=== PATIENT | female | born 1935 | race Caucasian/White ===

== ENCOUNTER 2017-12-29 18:07 | Inpatient (IN) ==
--- NOTE | 2017-12-29 18:18 | Emergency Department Report ---
General Adult HPI - General Chief complaint: Fever Stated complaint: POSS FEVER Time Seen by Provider: 12/29/17 18:11 Source: patient, EMS, other ([facility]) Mode of arrival: EMS Limitations: other (Dementia / MR) - History of Present Illness HPI narrative: 82 F presents to the emergency department with a chief complaint of a potential fever. She was sent because rest care had noted that she has been incontinent of urine and that her urine has been smelling badly which is new for the patient. Patient has been feeling poorly for most of today. Patient was noted to have a fever of 101.5F at her care facility. The care team also reports that her heart rate was possibly as high as 140 bpm and that her blood pressure was in the 70s and 80s systolically. She denies any pain or discomfort. She was at her care facility when her symptoms began. History is limited secondary to the patient's mental retardation and dementia. - Related Data Home Medications Medication Instructions Recorded Confirmed Acetaminophen 650 mg PO TID #0 tab 10/21/14 12/29/17 Esomeprazole Magnesium [Nexium] 40 mg PO DAILY #0 cap 10/21/14 12/29/17 Fluticasone Nasal [place] [Flonase] 2 spray EA NOSTRIL DAILY #0 ml 10/21/14 Albuterol/Ipratropium [Duoneb] 1 unit AEROSOL QID 06/06/17 12/29/17 Gabapentin 300 mg PO HS 06/06/17 12/29/17 Hypromellose [Systane Gel] 1 drop OP TID 06/06/17 12/29/17 CloNIDine [Catapres] 0.1 mg PO HS 07/11/17 12/29/17 Lisinopril [Prinivil] 10 mg PO DAILY 07/11/17 12/29/17 Loratadine [Claritin] 10 mg PO DAILY 07/11/17 12/29/17 Sertraline [Zoloft] 150 mg PO QAM 07/11/17 12/29/17 Vitamin E (Dl,Tocopheryl Acet) 100 unit PO DAILY 07/11/17 12/29/17 [Vitamin E] OLANZapine [Zyprexa Zydis] 20 mg PO HS 12/23/17 12/29/17 ClonazePAM [Klonopin] 1 mg PO TID 12/29/17 12/29/17 Senna + Docusate [Senna Plus 1 tab PO DAILY 12/29/17 12/29/17 Tablet] Allergies Allergy/AdvReac Type Severity Reaction Status Date / Time No Known Allergies Allergy Verified 12/29/17 18:19 Review of Systems Limitations: ROS unobtainable due to patient's medical condition (MR with dementia) PFS Patient Stated Medical History Dementia Yes Hypertension Yes Chronic Obstructive Pulmonary Yes Disease (COPD) Other Yes: URETHRAL STENOSIS Osteoarthritis Yes Bipolar Disorder Yes Other Behavioral Health Yes: MILD MR interstitial cystitis Surgical History: Breast biopsies, cystoscopy with urethral dilation, oral surgery with extraction of teeth, eye surgery Family History: Reviewed and non-contributory. - Social History Smoking status: Never smoker Substance use type: does not use Alcohol intake frequency: does not drink Physical Exam - Limitations Limitations: other (dementia/mental retardation) - General General appearance: alert, in no apparent distress - Normal Exams: Head:: Normocephalic without trauma Eyes:: Pupils are PERRLA w/ EOMI, No scleral icterus, irritation, or foreign bodies noted ENMT:: No facial trauma, nasal exudates, pharyngeal erythema, or exudates are noted Dental: No fractured, loose, or missing teeth noted Neck:: Full range of motion, without adenopathy, JVD, bruits or thyromegaly Chest/Respirations:: Clear all cordoba, with good airflow, and symmetry bilaterally Cardiovascular:: Regular rate and rhythm, without murmur or gallop, Pulses 2+ all extremities, capillary refill, <2 seconds all extremities Abdomen:: Bowel sounds positive, soft, non-tender, non-distended, no hepatosplenomegaly, masses or bruits noted Lymphatic:: No lymphadenopathy, or lymphedema noted Musculoskeletal:: No tenderness, or deformity noted, good range of motion, all extremities Integumentary:: No rashes, hives, or bruising noted, hair and nails, without abnormality Neurological:: Patient is alert (alert and oriented 1. At neurologic baseline per [facility] staff. No focal deficit. ) Medical Decision Making - MDM Narrative Medical decision making narrative: Labs/imaging were discussed in detail with the patient and caregiver and questions are answered. Patient was given 500 mL normal saline intravenously times one in the emergency department. Patient was discussed with Dr. Sr from the hospitalist service who agrees to accept the patient to his service for further evaluation and treatment. Patient does not have any respiratory or chest symptoms. Patient does have symptoms consistent with a urinary tract infection and her urinalysis is positive for UTI. At 1942 Rocephin 1 g IV was given when sepsis was considered. Patient has a lactic acid less than 4 and was never hypotensive in the emergency department. She declines offered analgesic pain medication in the emergency department. She is admitted to the service of the hospitalist Dr. Ornelas in improved condition. No further orders from accepting physician who is in agreement with the current plan of management. 1942 Rocephin 1 g IV was given when sepsis was considered. Patient's lactic acid is < 4 and she was never hypotensive in the ED. - Differential Diagnosis UTI, Viral Syndrome, PNA, Metabolic disorder - Lab Data Result diagrams: 12/29/17 18:35 12/29/17 18:35 - Radiology Data CXR - No obvious acute processes. Similar to comparison exam. Cannot really exclude atelectasis versus infiltrate in the base. - EKG Data EKG #1 EKG results narrative: Sinus Tachycardia. 114 bpm. No STEMI. Disposition Clinical Impression: UTI (urinary tract infection) Qualifiers: Urinary tract infection type: acute cystitis Hematuria presence: with hematuria Qualified Code(s): N30.01 - Acute cystitis with hematuria Disposition: To [facility] Acute Care Condition: Improved Time of Disposition: 19:35 - Seen By: physician
[2017-12-29] MEDS: SALINE FLUSH 10ml SYRINGE IVF PRN (18:34)
[2017-12-29] MEDS ORDERED: CEFTRIAXONE 1 G in NS 100 ML IV ONE (19:43)
--- NOTE | 2017-12-29 20:49 | History & Physical Report ---
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 The pt developed fevers today at the home of 102, with elevated BP's. She has been eating and drinking normally, her baseline is nonverbal and usually requires assistance with ambulation. She has not been yelling, voilent, no emesis, diarrhea, no rashes Review of Systems - Constitutional Constitutional: Present: chills, fatigue, fever(s). Absent: anorexia - Respiratory Respiratory: Absent: cough, wheezing - Gastrointestinal Gastrointestinal: Absent: constipation, vomiting - Genitourinary Genitourinary: Present: urinary frequency, urinary incontinence - Musculoskeletal Musculoskeletal: Absent: deformity - Neurological Neurological: Present: confusion Past Medical History Surgical History: Breast biopsies, cystoscopy with urethral dilation, oral surgery with extraction of teeth, eye surgery Family History: As Above - Social History Smoking status: Never smoker Substance use type: does not use Alcohol intake frequency: does not drink Housing: assisted living facility Medications Home Medications Medication Instructions Recorded Confirmed Type Acetaminophen 650 mg PO TID #0 tab 10/21/14 12/29/17 History Esomeprazole Magnesium [Nexium] 40 mg PO DAILY #0 cap 10/21/14 12/29/17 History Fluticasone Nasal [place] [Flonase] 2 spray EA NOSTRIL DAILY #0 ml 10/21/14 History Albuterol/Ipratropium [Duoneb] 1 unit AEROSOL QID 06/06/17 12/29/17 History Gabapentin 300 mg PO HS 06/06/17 12/29/17 History Hypromellose [Systane Gel] 1 drop OP TID 06/06/17 12/29/17 History CloNIDine [Catapres] 0.1 mg PO HS 07/11/17 12/29/17 History Lisinopril [Prinivil] 10 mg PO DAILY 07/11/17 12/29/17 History Loratadine [Claritin] 10 mg PO DAILY 07/11/17 12/29/17 History Sertraline [Zoloft] 150 mg PO QAM 07/11/17 12/29/17 History Vitamin E (Dl,Tocopheryl Acet) 100 unit PO DAILY 07/11/17 12/29/17 History [Vitamin E] OLANZapine [Zyprexa Zydis] 20 mg PO HS 12/23/17 12/29/17 History ClonazePAM [Klonopin] 1 mg PO TID 12/29/17 12/29/17 History Senna + Docusate [Senna Plus 1 tab PO DAILY 12/29/17 12/29/17 History Tablet] Allergies Allergy/AdvReac Type Severity Reaction Status Date / Time No Known Allergies Allergy Verified 12/29/17 18:19 Exam Vital Signs: Temperature 99.3 F 12/29/17 18:07 Pulse Rate 107 H 12/29/17 20:00 Respiratory Rate 20 12/29/17 18:07 Blood Pressure 127/68 12/29/17 19:53 Pulse Oximetry 93 12/29/17 20:00 - Constitutional Present: no acute distress - Routine Neck Exam Present: supple - Routine Respiratory Exam Present: CTA bilaterally. Absent: respiratory distress - Routine Cardiovascular Exam Present: RRR, murmur - Routine Abdominal Exam Present: soft, normoactive bowel sounds. Absent: rebound, guarding - Routine Extremities Exam Present: edema Results - Labs CBC & Chem 7: 12/29/17 18:35 12/29/17 18:35 Assessment and Plan (1) Sepsis Current visit: Yes Status: Acute (2) UTI (urinary tract infection) Current visit: Yes Status: Acute Assessment and Plan: will place pt on IVF, start on rocephin, prn med, restart home meds. - Physician Narrative Narrative: Date: 12/29/17 Time: 2045 Hospital Course Summary Disclaimer: The visit summary below is not to be considered part of the above Progress Note.
[2017-12-29] MEDS ORDERED: HYDROCODONE/APAP 5mg/325mg TABLET PO PRN (20:54)
[2017-12-29] MEDS ORDERED: CEFTRIAXONE 1 G INJECTION IM SCH (20:54)
[2017-12-29] MEDS ORDERED: ONDANSETRON 4 MG/2 ML INJECTION IVP PRN (20:54)
[2017-12-29] MEDS ORDERED: SENNOSIDES 8.6 MG TABLET PO PRN (20:54)
[2017-12-29] MEDS ORDERED: SENNA + DOCUSATE TABLET PO PRN (20:54)
[2017-12-29] MEDS: NS 1,000 ML IV SCH (21:29)
[2017-12-29] MEDS: GABAPENTIN 300 MG CAPSULE PO SCH (21:59)
[2017-12-29] MEDS: ACETAMINOPHEN 325 MG TABLET PO PRN (21:59)
[2017-12-29] MEDS: ClonazePAM 1 MG TABLET PO SCH (21:59)
[2017-12-29] MEDS ORDERED: FALL RISK - PHARMACY CONSULT MC ONE (23:26)
[2017-12-29 23:41] VITALS: BMI 21.2
[2017-12-30] MEDS: ACETAMINOPHEN 325 MG TABLET PO PRN ×3 (04:47→20:31)
[2017-12-30] MEDS: OLANZapine 10 MG TABLET PO SCH ×2 (06:52→20:31)
[2017-12-30] MEDS: OMEPRAZOLE 20 MG CAPSULE PO SCH (06:56)
[2017-12-30] MEDS: NS 1,000 ML IV SCH ×2 (07:11→18:01)
[2017-12-30] MEDS: ALBUTEROL/IPRATROPIUM 2.5mg-0.5mg/3ml NEB AEROSOL SCH ×5 (07:42→19:25)
--- NOTE | 2017-12-30 07:45 | XRay Report ---
Indication: poss. fever. PROCEDURE: XR chest 1V: Encounter: Initial Comparison: July 11, 2017 Findings: Emphysema without focal pneumonia. Possible trace right effusion. No pneumothorax. Heart size and mediastinal contours are stable. Pulmonary vascularity appears normal. Impression: No focal pneumonia. .
--- NOTE | 2017-12-30 09:00 | History & Physical Report ---
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 The pt developed fevers today at the home of 102, with elevated BP's. She has been eating and drinking normally, her baseline is nonverbal and usually requires assistance with ambulation. She has not been yelling, voilent, no emesis, diarrhea, no rashes. 12/30/17 gale Snider is an 82-year-old female patient of Dr. Hood and a long time resident at [facility]. She has a history of MR developmental delay and is non- verbal so her history is primarily obtained from prior medical records, ED records and nursing notes. She was brought to [facility] ED yesterday evening, 12/29/17 , for evaluation of fevers. Records indicated that the nursing staff at [facility] noted foul smelling urine and stated that she recently became incontinent of urine which is unusual for her. She was also noted to be febrile at the correction at 101.5 and appeared not to be feeling well. EMS was contacted and she was found to be tachycardic with a reported systolic blood pressure between 70-80s. Upon arrival to the ED, labs were obtained and revealed leukocytosis (WBC 12.1), mild anemia (hgb 11.9), slight elevation in her creatine at 1.3 and hyperglycemia (Glu 150). UA revealed 50-200 WBC with 3 + bacteria and + nitrates. CXR was unremarkable. She was given 1 L NS with some improvement in her vitals. Blood cultures were obtained and she was started on empiric treatment with Rocephin IV. Due to her sepsis secondary to UTI as indicated by fever, leukocytosis, elevated lactate (2.1) and tachycardia , the night tele-hospitalist was consulted and she was accepted into inpatient status for further evaluation, close monitoring, IV antibiotics and IV hydration. Her length of stay is expected to exceed more than 2 over nights. On exam, she is seen while resting in bed with nursing at the bedside attempting to replace her IV as the initial IV had infiltrated. She is non- verbal and does not appear to be in any acute distress. Repeat labs today revealed resolution of her leukocytosis (WBC 9.9) and improvement in creatine. Fasting hyperglycemia noted (Glu 193) with no known history of diabetes. Serial lactates trending down. She was noted to have a fever during the night of 103.7 which improved with Tylenol. Review of Systems ROS unobtainable: due to mental status All systems PM: 10-point ROS was reviewed, no additional remarkable complaints except - Constitutional Constitutional: Present: fatigue, fever(s), weakness - EENMT Eyes: Absent: photophobia Nose: Absent: nosebleeds Mouth/Throat: Absent: changes in swallowing - Cardiovascular Cardiovascular: Absent: syncope, edema Rhythm: Present: regular rhythm Vascular: Absent: pallor of an extermity, pedal edema, unilateral swelling - Respiratory Respiratory: Absent: cough, dyspnea, wheezing - Gastrointestinal Gastrointestinal: Present: constipation. Absent: vomiting - Genitourinary Genitourinary: Present: urinary frequency, urinary incontinence Menstruation: post menopausal - Musculoskeletal Musculoskeletal: Present: muscle weakness (generalized). Absent: deformity - Integumentary/Breasts Integumentary: Absent: rash - Neurological Neurological: Present: weakness. Absent: convulsions, focal weakness - Psychiatric Psychiatric: Absent: behavioral changes - Hematologic/Lymphatic Hematologic/Lymphatic: Absent: easy bruising - Allergic/Immunologic Allergic/Immunologic: Present: seasonal rhinorrhea Past Medical History Medical History Updates: Hypertension. Mental retardation with developmental delays. Bipolar disorder. GERD. Seasonal allergies. Constipation. Interstitial cystitis. History of ureteral stenosis. Chronic pain. Personality disorder. Oropharyngeal dysphagia. COPD. Osteoarthritis. Surgical History: Breast biopsies. Cystoscopy with urethral dilation. Oral surgery with extraction of teeth. Eye surgery. Family History: Unable to obtain as patient is non-verbal. Family History: As Above - Social History Smoking status: Never smoker Substance use type: does not use Alcohol intake frequency: does not drink Housing: [facility] ([facility]) Household members: caregiver Current occupational status: disabled Does patient use chewing tobacco?: No Current residence: [facility] Social history: PCP - Dr. Hood. Medications Home Medications Medication Instructions Recorded Confirmed Type Acetaminophen 650 mg PO TID #0 tab 10/21/14 12/29/17 History Esomeprazole Magnesium [Nexium] 40 mg PO DAILY #0 cap 10/21/14 12/29/17 History Fluticasone Nasal [place] [Flonase] 2 spray EA NOSTRIL DAILY #0 ml 10/21/14 History Albuterol/Ipratropium [Duoneb] 1 unit AEROSOL QID 06/06/17 12/29/17 History Gabapentin 300 mg PO HS 06/06/17 12/29/17 History Hypromellose [Systane Gel] 1 drop OP TID 06/06/17 12/29/17 History CloNIDine [Catapres] 0.1 mg PO HS 07/11/17 12/29/17 History Lisinopril [Prinivil] 10 mg PO DAILY 07/11/17 12/29/17 History Loratadine [Claritin] 10 mg PO DAILY 07/11/17 12/29/17 History Sertraline [Zoloft] 150 mg PO QAM 07/11/17 12/29/17 History Vitamin E (Dl,Tocopheryl Acet) 100 unit PO DAILY 07/11/17 12/29/17 History [Vitamin E] OLANZapine [Zyprexa Zydis] 20 mg PO HS 12/23/17 12/29/17 History ClonazePAM [Klonopin] 1 mg PO TID 12/29/17 12/29/17 History Senna + Docusate [Senna Plus 1 tab PO DAILY 12/29/17 12/29/17 History Tablet] Allergies Allergy/AdvReac Type Severity Reaction Status Date / Time No Known Allergies Allergy Verified 12/29/17 18:19 Exam Vital Signs: Temperature 99.4 F 12/30/17 07:27 Pulse Rate 84 12/30/17 07:27 Respiratory Rate 16 12/30/17 07:27 Blood Pressure 100/46 12/30/17 07:27 Pulse Oximetry 93 12/30/17 07:27 Height/Weight/BMI: Height 5 ft 6 in Weight 131 lb 2.801 oz Body Mass Index 21.2 Comments: Patient is resting in bed, alert, with nursing present attempting to plan an IV. - Constitutional Present: no acute distress, well nourished, well developed, thin, cooperative - Routine HEENT Exam Head: Present: normocephalic, atraumatic Eye: Absent: conjunctival icterus ENT: Present: mucous membranes moist - Routine Neck Exam Present: supple, trachea midline - Routine Chest/Breast/Axilla Exam Chest wall: Absent: pacemaker - Routine Respiratory Exam Present: CTA bilaterally. Absent: respiratory distress, wheezes Comments: Breathing easily on room air without cough or distress. - Routine Cardiovascular Exam Present: RRR, S1, S2, murmur - Routine Abdominal Exam Present: soft, normoactive bowel sounds, non distended - Routine Extremities Exam Present: no edema, pulses intact Comments: Ecchymosis noted to right great toe. - Routine Skin Exam Present: dry, warm Comments: currently afebrile after treatment. - Routine Neurological Exam Present: alert, hearing grossly intact. Absent: facial asymmetry Non-verbal. - Routine Psychiatric Exam Present: cooperative Results - Labs CBC & Chem 7: 12/30/17 04:00 12/30/17 04:00 Assessment and Plan (1) UTI (urinary tract infection) Current visit: Yes Status: Acute (2) Sepsis Current visit: Yes Status: Acute Assessment and Plan: Assessment/Plan per tele-hospitalist 12/29/17 - will place pt on IVF, start on rocephin, prn med, restart home meds. Assessment: Severe sepsis secondary to UTI as indicated by fever, tachycardia, leukocytosis , lactic acidosis (2.1), hyperglycemia in non-diabetic. UTI, present on admission. Anemia, mild, present on admission. Hyperglycemia in non-diabetic, present on admission. Hypertension. 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 Bipolar disorder. GERD. Seasonal allergies. Constipation. Interstitial cystitis. History of ureteral stenosis. Chronic pain. Personality disorder Oropharyngeal dysphagia. COPD. Osteoarthritis. Plan - 12/30/17: Patient was admitted to inpatient status under the care of Dr. Ornelas and the hospitalist service. She received Rocephin 1g IV in ED prior to admission. Will continue Rocephin 1g IV Q24 hours for empiric treatment of UTI. Blood cultures and urine culture pending. Will adjust antibiotic treatment as indicated based on cultures and sensitivities. No prior urine cultures available. Serial lactates were trended and improving - 2.1-->1.8. Initial leukocytosis present on admission resolved. Hyperglycemia without known diabetes. Monitor BGMs closely. Anticipate secondary to severe sepsis. Consider A1c if no improvement with resolution of sepsis. Blood pressure stable without noted hypotension since arrival in ED. Continue to monitor closely. Continue home clonidine and lisinopril. Continue home medications. Monitor closely for signs of behaviors changes given history of bipolar and MR. Oliver treatments QID for chronic COPD. CXR on admission was unremarkable. Tylenol as needed for fevers. Recheck labs in AM to monitor blood counts, electrolytes and renal function. Mechanical soft diet with pureed meats and nectar thickened liquids per records. Nexium for GERD and GI protection. SCDs for DVT prophylaxis. Upon discharge, patient's care will be returned to her PCP, Dr. Hood. Patient is reportedly a FULL CODE. 12/30/2017-9:20 PM-I examined the patient independently. I reviewed this chart, the patient history, and the HEADER UP's/PA's documented findings as above. We discussed and formulated the assessment and plan as above with the additions below.-Dr. Ornelas Patient was seen earlier this evening in her room. She was having shaking chills. I did ask the nurse to check her vitals and her temperature was 100.9, heart rate 118, blood pressure 153/95, O2 sat 95% on room air, respirations 28. The patient admitted to feeling cold. She stated she needed to urinate. On exam this is an elderly female in mild distress with chills. Neck is kyphotic. Chest is clear to auscultation. Cardiovascular reveals a tachycardic rate with irregular rhythm. Abdomen is soft and nontender. Extremities are free of edema. White count has improved to 9.9 down from 12.1. Neutrophils 76%. Urine culture reveals Escherichia coli with sensitivities pending. Blood cultures 2 are negative after 24 hours Impression and plan Sepsis secondary to UTI. Continue Rocephin. If still febrile tomorrow, may need to add additional antibiotic or increased dose of Rocephin. Follow-up on urine culture sensitivities and blood cultures. Repeat CBC and basic metabolic profile tomorrow. Continue IV fluids. Tylenol for fever and chills. DVT Prophylaxis: SCD's GI Prophylaxis: other (Nexium) Resuscitation Status: Full Code - Time spent with patient Time with patient PN: 50 minutes - Physician Narrative Physician: Savi Ornelas MD Narrative: Date: 12/30/17 Time: 0846 Sepsis Assessment - Evaluation SIRS Criteria: temperature > 100.9, pulse > 90 beats/minute, WBC > 12,000 Severe Sepsis: lactate > 2.0 mg/dL Hospital Course Summary Disclaimer: The visit summary below is not to be considered part of the above Progress Note. Hospital Course: Plan - 12/30/17: Patient was admitted to inpatient status under the care of Dr. Ornelas and the hospitalist service. She received Rocephin 1g IV in ED prior to admission. Will continue Rocephin 1g IV Q24 hours for empiric treatment of UTI. Blood cultures and urine culture pending. Will adjust antibiotic treatment as indicated based on cultures and sensitivities. No prior urine cultures available. Serial lactates were trended and improving - 2.1-->1.8. Initial leukocytosis present on admission resolved. Hyperglycemia without known diabetes. Monitor BGMs closely. Anticipate secondary to severe sepsis. Consider A1c if no improvement with resolution of sepsis. Blood pressure stable without noted hypotension since arrival in ED. Continue to monitor closely. Continue home clonidine and lisinopril. Continue home medications. Monitor closely for signs of behaviors changes given history of bipolar and MR. [place] treatments QID for chronic COPD. CXR on admission was unremarkable. Tylenol as needed for fevers. Mechanical soft diet with pureed meats and nectar thickened liquids per records. Recheck labs in AM to monitor blood counts, electrolytes and renal function. Nexium for GERD and GI protection. SCDs for DVT prophylaxis. Upon discharge, patient's care will be returned to her PCP, Dr. Hood. Patient is reportedly a FULL CODE.
[2017-12-30] MEDS: ClonazePAM 1 MG TABLET PO SCH ×3 (09:23→20:31)
[2017-12-30] MEDS: LISINOPRIL 10 MG TABLET PO SCH (09:23)
[2017-12-30] MEDS: FLUTICASONE NASAL SPRAY 50mcg EA NOSTRIL SCH (09:23)
[2017-12-30] MEDS: SERTRALINE 100 MG TABLET PO SCH (09:24)
[2017-12-30] MEDS: LORATADINE 10 MG TABLET PO SCH (09:24)
[2017-12-30] MEDS: SENNA + DOCUSATE TABLET PO SCH (09:25)
[2017-12-30] MEDS: GABAPENTIN 300 MG CAPSULE PO SCH (20:31)
[2017-12-30] MEDS: CEFTRIAXONE 1 G in NS 100 ML IV SCH (20:39)
[2017-12-31] MEDS: NS 1,000 ML IV SCH (04:34)
[2017-12-31] MEDS: OMEPRAZOLE 20 MG CAPSULE PO SCH (07:40)
[2017-12-31] MEDS: ALBUTEROL/IPRATROPIUM 2.5mg-0.5mg/3ml NEB AEROSOL SCH ×4 (07:49→19:18)
[2017-12-31] MEDS: ClonazePAM 1 MG TABLET PO SCH ×3 (08:47→20:55)
[2017-12-31] MEDS: FLUTICASONE NASAL SPRAY 50mcg EA NOSTRIL SCH (08:47)
[2017-12-31] MEDS: LORATADINE 10 MG TABLET PO SCH (08:48)
[2017-12-31] MEDS: LISINOPRIL 10 MG TABLET PO SCH (08:48)
[2017-12-31] MEDS: SENNA + DOCUSATE TABLET PO SCH (08:48)
[2017-12-31] MEDS: SERTRALINE 100 MG TABLET PO SCH (08:48)
--- NOTE | 2017-12-31 10:33 | Progress Note ---
- Date 12/31/17 Subjective: Marilia is seen this morning while sitting up in bed, working with speech therapy. She is much more alert today and is able to answer questions appropriately. She denies any current pain. No chest pain or shortness of breath. Speech reports that she appears to be at her baseline with regard to her dysphagia and has been eating well this morning. She has remained afebrile since yesterday and resolution of her leukocytosis. Nursing expressed concerns yesterday with regard to her decreased level of consciousness, though she appears improved today. Slight hypernatremia with hypokalemia today. Lactate trending down - 2.1-->1.8-->0.7 today. Blood pressure elevated. Weight trending up and pulse oximetry slowly trending down in low 90s. Objective Vital signs: Temperature 98.3 F 12/31/17 08:01 Pulse Rate 93 12/31/17 08:01 Respiratory Rate 24 12/31/17 08:01 Blood Pressure 154/69 H 12/31/17 08:01 Pulse Oximetry 90 12/31/17 08:01 Height/Weight/BMI: Height 5 ft 6 in Weight 138 lb 0.15 oz Body Mass Index 21.2 Comments: Sitting up in bed with speech therapy at bedside. Occasional dry cough. - Constitutional Present: no acute distress, well nourished, well developed, thin, cooperative Comments: Much more alert today and able to answer questions appropriately. - Routine HEENT Exam Head: Present: normocephalic, atraumatic Eye: Present: PERRL. Absent: conjunctival icterus ENT: Present: mucous membranes moist, oropharynx clear Comments: Patient at baseline with regard to dysphagia. Matting of eyes bilaterally without discharge or erythema. - Routine Respiratory Exam Present: decreased breath sounds, crackles (bilateral bases.) Comments: Occasional dry cough. - Routine Abdominal Exam Present: soft, normoactive bowel sounds, non distended, non tender - Routine Extremities Exam Present: non tender, pulses intact - Routine Back/Spine/Pelvis Exam Back/Spine: Absent: vertebral tenderness Comments: Limited exam due to generalized weakness. - Routine Musculoskeletal Exam Musculoskeletal: Present: no clubbing or cyanosis - Routine Skin Exam Present: intact, dry, warm Comments: Afebrile. - Routine Neurological Exam Present: alert, hearing grossly intact, normal speech. Absent: facial asymmetry - Routine Lymphatic Exam Lymphatic: Absent: lymphedema - Routine Psychiatric Exam Present: cooperative Results - Labs CBC & Chem 7: 12/31/17 04:47 12/31/17 04:47 - ABG Interpretation ABG results: 12/31/17 01:02 VBG pH 7.428 H VBG pCO2 31.2 L VBG pO2 154.1 H VBG HCO3 20.6 L VBG Total CO2 21.6 L VBG O2 Saturation 99.4 VBG Base Excess -3.2 Assessment and Plan (1) UTI (urinary tract infection) Current visit: Yes Status: Acute (2) Sepsis Current visit: Yes Status: Acute Assessment and Plan: Assessment/Plan per tele-hospitalist 12/29/17 - will place pt on IVF, start on rocephin, prn med, restart home meds. Assessment: Severe sepsis secondary to UTI as indicated by fever, tachycardia, leukocytosis , lactic acidosis (2.1), hyperglycemia in non-diabetic - improving. UTI, present on admission. Anemia, mild, present on admission. Hyperglycemia in non-diabetic, present on admission. Hypertension. 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 Bipolar disorder. GERD. Seasonal allergies. Constipation. Interstitial cystitis. History of ureteral stenosis. Chronic pain. Personality disorder Oropharyngeal dysphagia. COPD. Osteoarthritis. Plan - 12/31/17: Patient is much more alert today and able to answer questions on exam and work with speech therapy. Speech reports patient is currently at baseline with regard to dysphagia. UA culture revealed pansensitive E. coli. Blood cultures remain negative x 1 day. Leukocytosis resolved. Nursing reported fever 100.9 last evening around 1999 which improved with Tylenol. Has remained afebrile since. Around 0200 this morning, patient hypotensive (87/54) with decreased LOC per nursing. Labs obtained and patient given NS 500 cc bolus per tele-hospitalist with improvement. Labs this AM at 0400 revealed new leukopenia (WBC 4.2), stable anemia (hgb 9.7) , new hypernatremia (Na 147) and mild hypokalemia (K 3.5). VBG revealed pH 7.428, pCO2 low 31.2 and HCO3 low at 20.6 with pO2 high at 154.1. Weight slowly trending up and pulse oximetry slowly trending down to low 90's. Oxygen as needed to maintain SAO2 >90%. Crackles noted bibasilarly. Will decrease IV fluids to NS with KCl at 75cc/hr for gentle hydration and potassium replacement. Consider lasix for gentle diuresis, though concern with recent hypotension overnight. Monitor daily weights closely. I&O difficulty to monitor due to incontinence. Will continue IV Rocephin (day 2). Will hold off on addition of additional antibiotics at this time given clinical improvement. Serial lactates were trended and improving - 2.1-->1.8--0.7. Hyperglycemia without known diabetes appears to be improving. Continue to monitor BGMs closely. Anticipate secondary to severe sepsis. Consider A1c if no improvement with resolution of sepsis. Continue to monitor blood pressure closely. Continue home clonidine and lisinopril. Continue home medications. Monitor closely for signs of behaviors changes given history of bipolar and MR. Oliver treatments QID for chronic COPD. CXR on admission was unremarkable. Tylenol as needed for fevers. Recheck labs in AM to monitor blood counts, electrolytes and renal function. Mechanical soft diet with pureed meats and nectar thickened liquids per records. Nexium for GERD and GI protection. 12/31/2017-9 PM-I examined the patient independently. I reviewed this chart, the patient history, and the [employer]'s/PA's documented findings as above. We discussed and formulated the assessment and plan as above with the additions below.-Dr. Ornelas Patient was seen this evening in her room. She denied pain. She denied nausea. Her nurse stated she was eating okay. She had a bowel movement. On exam she is alert and in no acute distress. Chest is clear to auscultation. Cardiovascular reveals a regular rate and rhythm. Extremities are free of edema. Skin is warm and dry and without rashes. Neurologic reveals no tremulousness today. She was having shaking chills yesterday. The patient did receive a fluid bolus last night for hypotension. Lactate was normal at 0.7. Impression and plan UTI with Escherichia coli sensitive to Rocephin. Continue on Rocephin Anemia-continue to monitor Leukocytopenia-recheck CBC tomorrow Overall, the patient is slowly improving. DVT Prophylaxis: SCD's GI Prophylaxis: Omeprazole Resuscitation Status: Full Code - Time spent with patient Time with patient PN: 30 minutes - Physician Narrative Physician: Savi Ornelas MD Narrative: Date: 12/31/17 Time: 1028 Hospital Course Summary Disclaimer: The visit summary below is not to be considered part of the above Progress Note. Hospital Course: Plan - 12/30/17: Patient was admitted to inpatient status under the care of Dr. Ornelas and the hospitalist service. She received Rocephin 1g IV in ED prior to admission. Will continue Rocephin 1g IV Q24 hours for empiric treatment of UTI. Blood cultures and urine culture pending. Will adjust antibiotic treatment as indicated based on cultures and sensitivities. No prior urine cultures available. Serial lactates were trended and improving - 2.1-->1.8. Initial leukocytosis present on admission resolved. Hyperglycemia without known diabetes. Monitor BGMs closely. Anticipate secondary to severe sepsis. Consider A1c if no improvement with resolution of sepsis. Blood pressure stable without noted hypotension since arrival in ED. Continue to monitor closely. Continue home clonidine and lisinopril. Continue home medications. Monitor closely for signs of behaviors changes given history of bipolar and MR. Oliver treatments QID for chronic COPD. CXR on admission was unremarkable. Tylenol as needed for fevers. Mechanical soft diet with pureed meats and nectar thickened liquids per records. Recheck labs in AM to monitor blood counts, electrolytes and renal function. Nexium for GERD and GI protection. SCDs for DVT prophylaxis. Upon discharge, patient's care will be returned to her PCP, Dr. Hood. Patient is reportedly a FULL CODE. Plan - 12/31/17: Patient is much more alert today and able to answer questions on exam and work with speech therapy. Speech reports patient is currently at baseline with regard to dysphagia. UA culture revealed pansensitive E. coli. Blood cultures remain negative x 1 day. Leukocytosis resolved. Nursing reported fever 100.9 last evening around 1999 which improved with Tylenol. Has remained afebrile since. Around 0200 this morning, patient hypotensive (87/54) with decreased LOC per nursing. Labs obtained and patient given NS 500 cc bolus per tele-hospitalist with improvement. Labs this AM at 0400 revealed new leukopenia (WBC 4.2), stable anemia (hgb 9.7) , new hypernatremia (Na 147) and mild hypokalemia (K 3.5). VBG revealed pH 7.428, pCO2 low 31.2 and HCO3 low at 20.6 with pO2 high at 154.1. Weight slowly trending up and pulse oximetry slowly trending down to low 90's. Oxygen as needed to maintain SAO2 >90%. Crackles noted bibasilarly. Will decrease IV fluids to NS with KCl at 75cc/hr for gentle hydration and potassium replacement. Consider lasix for gentle diuresis, though concern with recent hypotension overnight. Monitor daily weights closely. I&O difficulty to monitor due to incontinence. Will continue IV Rocephin (day 2). Will hold off on addition of additional antibiotics at this time given clinical improvement. Serial lactates were trended and improving - 2.1-->1.8--0.7. Hyperglycemia without known diabetes appears to be improving. Continue to monitor BGMs closely. Anticipate secondary to severe sepsis. Consider A1c if no improvement with resolution of sepsis. Continue to monitor blood pressure closely. Continue home clonidine and lisinopril. Continue home medications. Monitor closely for signs of behaviors changes given history of bipolar and MR. Oliver treatments QID for chronic COPD. CXR on admission was unremarkable. Tylenol as needed for fevers. Recheck labs in AM to monitor blood counts, electrolytes and renal function. Mechanical soft diet with pureed meats and nectar thickened liquids per records. Nexium for GERD and GI protection.
[2017-12-31] MEDS: NS with KCL 20 mEq 1,000 ML IV SCH (11:37)
[2017-12-31] MEDS: ACETAMINOPHEN 325 MG TABLET PO PRN (12:23)
[2017-12-31] MEDS: CEFTRIAXONE 1 G in NS 100 ML IV SCH (19:48)
[2017-12-31] MEDS: OLANZapine 10 MG TABLET PO SCH (20:56)
[2017-12-31] MEDS: GABAPENTIN 300 MG CAPSULE PO SCH (20:56)
[2018-01-01] MEDS: NS with KCL 20 mEq 1,000 ML IV SCH (01:36)
[2018-01-01] MEDS: OMEPRAZOLE 20 MG CAPSULE PO SCH ×2 (06:46→06:51)
[2018-01-01] MEDS: ALBUTEROL/IPRATROPIUM 2.5mg-0.5mg/3ml NEB AEROSOL SCH ×4 (07:10→19:25)
[2018-01-01] MEDS: FLUTICASONE NASAL SPRAY 50mcg EA NOSTRIL SCH (08:22)
[2018-01-01] MEDS: LORATADINE 10 MG TABLET PO SCH (08:22)
[2018-01-01] MEDS: LISINOPRIL 10 MG TABLET PO SCH (08:22)
[2018-01-01] MEDS: SERTRALINE 100 MG TABLET PO SCH (08:22)
[2018-01-01] MEDS: SENNA + DOCUSATE TABLET PO SCH (08:22)
[2018-01-01] MEDS: ClonazePAM 1 MG TABLET PO SCH ×3 (08:22→21:03)
[2018-01-01] MEDS ORDERED: 1/2 NS with KCL 20mEq 1,000 ML IV SCH (10:15)
--- NOTE | 2018-01-01 14:28 | Progress Note ---
- Date 01/01/18 Subjective: Patient seen sitting up in bed this afternoon. She is able to respond yes and no to questions. When asked how she was feeling she responded with an indiscernible sentence. She is able to state her feet are cold when I had to blankets off to examine her. She denies CP, SOA, n/v or pain. Nurse notes pt's wt is up. [facility] staff has come in to feed her and she ate a decent lunch. Objective Vital signs: Temperature 98.2 F 01/01/18 11:00 Pulse Rate 77 01/01/18 11:00 Respiratory Rate 20 01/01/18 11:23 Blood Pressure 133/72 01/01/18 11:00 Pulse Oximetry 94 01/01/18 11:23 Height/Weight/BMI: Height 1.68 m Weight 64.3 kg Body Mass Index 21.2 - Constitutional Present: no acute distress, well nourished, well developed - Routine HEENT Exam Head: Present: normocephalic, atraumatic - Routine Respiratory Exam Present: decreased breath sounds, CTA bilaterally (anteriorly). Absent: wheezes - Routine Cardiovascular Exam Present: irregular rhythm - Routine Abdominal Exam Present: soft, non distended, non tender - Routine Extremities Exam Present: edema (R foot with ecchymosis to R great toe and across distal foot dorsally. Has callous on plantar surface of R great toe and on ball of L foot.) , normal capillary refill - Routine Skin Exam Present: dry, warm - Routine Neurological Exam Present: alert, oriented X3 - Routine Lymphatic Exam Lymphatic: Absent: adenopathy - Routine Psychiatric Exam Present: normal affect, cooperative Results - Labs CBC & Chem 7: 01/01/18 04:20 01/01/18 04:20 - ABG Interpretation ABG results: 12/31/17 01:02 VBG pH 7.428 H VBG pCO2 31.2 L VBG pO2 154.1 H VBG HCO3 20.6 L VBG Total CO2 21.6 L VBG O2 Saturation 99.4 VBG Base Excess -3.2 Assessment and Plan (1) UTI (urinary tract infection) Current visit: Yes Status: Acute (2) Sepsis Current visit: Yes Status: Acute Assessment and Plan: Assessment: Severe sepsis secondary to UTI as indicated by fever, tachycardia, leukocytosis , lactic acidosis (2.1), hyperglycemia in non-diabetic - improving. UTI, present on admission. Anemia, mild, present on admission. Hyperglycemia in non-diabetic, present on admission. Hypertension. 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 Bipolar disorder. GERD. Seasonal allergies. Constipation. Interstitial cystitis. History of ureteral stenosis. Chronic pain. Personality disorder Oropharyngeal dysphagia. COPD. Osteoarthritis. Plan [facility] staff report pt is back to her baseline mental status. Fever again this am up to 100.3. Repeat CXR as pt is aspiration risk. Leukocytosis resolved/stable. Rocephin Day #3. E coli urine culture - pansensitive. Weight is up almost 7kg since admission. DC IV fluids. Consider Lasix, but will await results of CXR. Pt not hypoxic. DVT Prophylaxis: SCD's Resuscitation Status: Full Code - Physician Narrative Physician: Radha Barboza MD Narrative: Date: 01/01/18 Time: 1750 I have independently evaluated and examined this patient. I reviewed the chart, the patient's history, and the [employer]/PA's documented findings as above. We discussed and formulated the assessment and plan as above with additions as below: Marilia was resting in bed when seen. She responded yes or no to questions asked but answered that appeared to be random and inconsistent when same question was reasked. Reported to be at baseline per caregiver from [facility]. NAD, minor left ptosis Respirations nonlabored, breath sounds clear anteriorly 2-3/6 systolic murmur Abdomen benign, no suprapubic tenderness on exam. Intermittent low-grade fevers without recurrent leukocytosis. Suspect intermittent aspiration. Chest x-ray without infiltrate by my review; no evidence of heart failure. Oxygenating well on room air-do not believe Lasix needed at this time. Continue ceftriaxone with plans to convert to cephalexin at discharge. Hospital Course Summary Disclaimer: The visit summary below is not to be considered part of the above Progress Note. Hospital Course: 12/30/17: Patient was admitted to inpatient status under the care of Dr. Ornelas and the hospitalist service. She received Rocephin 1g IV in ED prior to admission. Will continue Rocephin 1g IV Q24 hours for empiric treatment of UTI. Blood cultures and urine culture pending. Will adjust antibiotic treatment as indicated based on cultures and sensitivities. No prior urine cultures available. Serial lactates were trended and improving - 2.1-->1.8. Initial leukocytosis present on admission resolved. Hyperglycemia without known diabetes. Monitor BGMs closely. Anticipate secondary to severe sepsis. Consider A1c if no improvement with resolution of sepsis. Blood pressure stable without noted hypotension since arrival in ED. Continue to monitor closely. Continue home clonidine and lisinopril. Continue home medications. Monitor closely for signs of behaviors changes given history of bipolar and MR. Oliver treatments QID for chronic COPD. CXR on admission was unremarkable. Tylenol as needed for fevers. Mechanical soft diet with pureed meats and nectar thickened liquids per records. Recheck labs in AM to monitor blood counts, electrolytes and renal function. Nexium for GERD and GI protection. SCDs for DVT prophylaxis. Upon discharge, patient's care will be returned to her PCP, Dr. Hood. Patient is reportedly a FULL CODE. 12/31/17: Patient is much more alert today and able to answer questions on exam and work with speech therapy. Speech reports patient is currently at baseline with regard to dysphagia. UA culture revealed pansensitive E. coli. Blood cultures remain negative x 1 day. Leukocytosis resolved. Nursing reported fever 100.9 last evening around 2000 which improved with Tylenol. Has remained afebrile since. Around 0200 this morning, patient hypotensive (87/54) with decreased LOC per nursing. Labs obtained and patient given NS 500 cc bolus per tele-hospitalist with improvement. Labs this AM at 0400 revealed new leukopenia (WBC 4.2), stable anemia (hgb 9.7) , new hypernatremia (Na 147) and mild hypokalemia (K 3.5). VBG revealed pH 7.428, pCO2 low 31.2 and HCO3 low at 20.6 with pO2 high at 154.1. Weight slowly trending up and pulse oximetry slowly trending down to low 90's. Oxygen as needed to maintain SAO2 >90%. Crackles noted bibasilarly. Will decrease IV fluids to NS with KCl at 75cc/hr for gentle hydration and potassium replacement. Consider lasix for gentle diuresis, though concern with recent hypotension overnight. Monitor daily weights closely. I&O difficulty to monitor due to incontinence. Will continue IV Rocephin (day 2). Will hold off on addition of additional antibiotics at this time given clinical improvement. Serial lactates were trended and improving - 2.1-->1.8--0.7. Hyperglycemia without known diabetes appears to be improving. 01/01/18: [facility] staff report pt is back to her baseline mental status. Fever again this am up to 100.3. Repeat CXR as pt is aspiration risk. Leukocytosis resolved/stable. Rocephin Day #3. E coli urine culture - pansensitive. Weight is up almost 7kg since admission. DC IV fluids. Consider Lasix, but will await results of CXR. Pt not hypoxic.
[2018-01-01] MEDS: POLYETHYL GLYCOL 3350 17gm PACKET PO SCH (14:30)
[2018-01-01] MEDS: GENTEAL EYE EACH EYE SCH ×2 (14:32→21:02)
[2018-01-01] MEDS: CEFTRIAXONE 1 G in NS 100 ML IV SCH (20:25)
[2018-01-01] MEDS: GABAPENTIN 300 MG CAPSULE PO SCH (21:02)
[2018-01-01] MEDS: OLANZapine 10 MG TABLET PO SCH (21:03)
[2018-01-02] MEDS: ALBUTEROL/IPRATROPIUM 2.5mg-0.5mg/3ml NEB AEROSOL SCH ×4 (07:05→18:38)
--- NOTE | 2018-01-02 08:52 | XRay Report ---
Indication: fever PROCEDURE: XR chest 1V: Encounter: Initial Comparison: December 29, 2017 Findings: Increasing interstitial prominence since the previous exam. Continued trace right effusion. No pneumothorax. Heart size and mediastinal contours are stable allowing for differences in rotation. Pulmonary vascularity is more prominent. Impression: Mild pulmonary vascular congestion or edema. No focal pneumonia. .
[2018-01-02] MEDS: OMEPRAZOLE 20 MG CAPSULE PO SCH (09:19)
[2018-01-02] MEDS: ClonazePAM 1 MG TABLET PO SCH ×3 (09:20→20:46)
[2018-01-02] MEDS: LISINOPRIL 10 MG TABLET PO SCH (09:20)
[2018-01-02] MEDS: SENNA + DOCUSATE TABLET PO SCH (09:20)
[2018-01-02] MEDS: LORATADINE 10 MG TABLET PO SCH (09:21)
[2018-01-02] MEDS: POLYETHYL GLYCOL 3350 17gm PACKET PO SCH (09:21)
[2018-01-02] MEDS: GENTEAL EYE EACH EYE SCH ×3 (09:22→20:55)
[2018-01-02] MEDS: FLUTICASONE NASAL SPRAY 50mcg EA NOSTRIL SCH (09:23)
[2018-01-02] MEDS: SERTRALINE 100 MG TABLET PO SCH (09:48)
--- NOTE | 2018-01-02 13:11 | Pharmacy Consult ---
Pharmacy Consult-Other Meds - Consult Information CULTURE AND SENSITIVITY REVIEW: Organism: > 100,000 E. COLI Site: URINE Antibiotic: CEFTRIAXONE 1GM IV DAILY Sensitivity: NA - ANTIBIOGRAM SHOWS 95% COVERAGE Recommendation/Action: CONTINUE
--- NOTE | 2018-01-02 14:06 | Discharge Summary ---
Discharge Information Date of admission: 12/29/17 19:45 Anticipated date of discharge: 01/02/18 Attending Physician: Radha Barboza MD Primary care physician: Lavern Hood MD - Discharge Diagnosis (1) UTI (urinary tract infection) Status: Acute (2) Sepsis Status: Acute Severe sepsis secondary to UTI as indicated by fever, tachycardia, leukocytosis , lactic acidosis (2.1), hyperglycemia in non-diabetic - improving. UTI, present on admission - pansensitive E.coli. Anemia, mild, present on admission. Hyperglycemia in non-diabetic, present on admission. Hypernatremia, not present on admission. Hypertension. 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 Bipolar disorder. GERD. Seasonal allergies. Constipation. Interstitial cystitis. History of ureteral stenosis. Chronic pain. Personality disorder Oropharyngeal dysphagia. COPD. Osteoarthritis. - Laboratory Labs: 12/29/2017 12/29/2017 12/30/2017 12/30/2017 12/30/2017 12/30/2017 12/31/2017 12/31/2017201712/31/2017 12/31/2017 01/01/2018 01/01/2018 01/01/2018 01/01/2018 01/02/2018 18:35 22:16 4:00 11:29 16:12 20:12 1:02 4:47 5:52 11:59 20:17 4:20 6:59 10:19 14:17 10:16 WBC 12.1 H 9.9 3.9 L D 4.2 L 4.7 RBC 3.94 L 3.63 L 2.98 L 3.26 L 3.12 L Hgb 11.9 L 11.0 L 9.0 L D 9.7 L 9.3 L Hct 35.3 L 33.5 L 27.4 L D 29.9 L 28.4 L MCV 89.6 92.3 91.9 91.7 91 MCH 30.2 30.3 30.2 29.8 29.8 MCHC 33.7 32.8 32.8 32.4 32.7 RDW Std Deviation 46.5 48.6 47.8 48.4 46.9 Plt Count 238 219 147 170 158 MPV 9.9 10.7 9.9 10.2 10.2 Immature Gran % (Auto) 0.7 H 0.3 0.5 0.5 0.4 Neut % (Auto) 74.1 H 76.8 H 61.8 62.2 56.9 Lymph % (Auto) 12.9 L 10.5 L 24.7 24.7 25.1 [place] % (Auto) 12.0 H 12.3 H 12.5 H 11.9 H 15.0 H Eos % (Auto) 0.1 0 0 0.5 2.4 Baso % (Auto) 0.2 0.1 0.5 0.2 0.2 Neut # (Auto) 9.0 H 7.6 2.4 2.6 2.7 Lymph # (Auto) 1.6 1 1 1 1.2 [place] # (Auto) 1.5 H 1.2 H 0.5 0.5 0.7 Eos # (Auto) 0 0 0 0 0.1 Baso # (Auto) 0 0 0 0 0 Abs Immat Gran (auto) 0.08 H 0.03 0.02 0.02 0.02 VBG pH 7.428 H VBG pCO2 31.2 L VBG pO2 154.1 H VBG HCO3 20.6 L VBG Total CO2 21.6 L VBG O2 Saturation 99.4 VBG Base Excess -3.2 Turbidity < 20 < 20 < 20 < 20 < 20 Sodium 142 144 146 147 H 148 H Potassium 4.4 3.8 3.5 L 3.5 L 3.9 Chloride 104 106 115 H D 114 H 115 H Carbon Dioxide 23 22 21 L 22 22 Anion Gap 15 16 H 10 11 11 BUN 23.0 H 24.0 H 20.0 H 19.0 H 15 Creatinine 1.3 H 1.2 0.9 D 0.9 0.8 GFR Calculation 39 43 60 60 68 BUN/Creatinine Ratio 18 20 22 21 19 Glucose 150 H 193 H 130 H 122 H 116 H Glucometer 174 210 161 131 170 196 116 156 148 179 Calculated Osmolality 280 286 H 286 H 285 H 286 H Calcium 9.1 8.4 7.8 L 7.7 L 8.1 L Total Bilirubin 0.6 < 0.10 L Icterus Index < 2 < 2 < 2 < 2 < 2 AST 31 35 ALT 19 19 Alkaline Phosphatase 88 51 D Troponin I 0.014 Total Protein 7.6 5.4 L Albumin 4.4 2.8 L Globulin 3.2 2.6 Albumin/Globulin Ratio 1.4 1.1 Plasma Lactate 2.1 1.8 0.7 Specimen Hemolysis < 15 < 15 < 15 < 15 Ur Collection Type Urine, cath straight < 15 Urine Color Yellow Urine Clarity Sl cloudy Urine pH 6 Ur Specific [place] 1.015 Urine Protein 2+ A Urine Glucose (UA) Negative Urine Ketones Negative Urine Occult Blood 2+ A Urine Nitrate Positive A Urine Bilirubin Negative Urine Urobilinogen 0.2 Ur Leukocyte Esterase 2+ A Urine RBC 1-3 Urine WBC 50-200 H Ur Squamous Epith Cells 0-5 Urine Bacteria 3+ H Ur Culture Indicated? Cult reflexed &setup - Microbiology Microbiology 12/29/17 18:42 Peripheral/Iv Start Blood Culture - Preliminary No Growth After 3 Days 12/29/17 18:34 Peripheral/Iv Start Blood Culture - Preliminary No Growth After 3 Days 12/29/17 19:09 Urine, Cath Straight Urine Culture - Final Escherichia coli - PANSENSITIVE - Radiology Radiology: Date of Exam: 12/29/17 Type of Exam(s): XR chest 1V Reason for Exam(s): poss. fever. Findings: Emphysema without focal pneumonia. Possible trace right effusion. No pneumothorax. Heart size and mediastinal contours are stable. Pulmonary vascularity appears normal. Impression: No focal pneumonia. Date of Exam: 01/01/18 Type of Exam(s): XR chest 1V Reason for Exam(s): fever Findings: Increasing interstitial prominence since the previous exam. Continued trace right effusion. No pneumothorax. Heart size and mediastinal contours are stable allowing for differences in rotation. Pulmonary vascularity is more prominent. Impression: Mild pulmonary vascular congestion or edema. No focal pneumonia. History of Present Illness HPI: ---Patient was initially seen and evaluated by night tele-hospitalist--- The pt is a MR developmentally delayed 82 yo who has lived at [facility] for the past 20 years who fell 3 days ago and was evaluated in the Er and sent back to the alf. The pt developed fevers today at the home of 102, with elevated BP's. She has been eating and drinking normally, her baseline is nonverbal and usually requires assistance with ambulation. She has not been yelling, voilent, no emesis, diarrhea, no rashes. 12/30/17 gale Snider is an 82-year-old female patient of Dr. Hood and a long time resident at [facility], [place]. She has a history of MR developmental delay and is non- verbal so her history is primarily obtained from prior medical records, ED records and nursing notes. She was brought to [facility] yesterday evening, 12/29/17 , for evaluation of fevers. Records indicated that the nursing staff at [facility], [place] noted foul smelling urine and stated that she recently became incontinent of urine which is unusual for her. She was also noted to be febrile at the usp at 101.5 and appeared not to be feeling well. EMS was contacted and she was found to be tachycardic with a reported systolic blood pressure between 70-80s. Upon arrival to the ED, labs were obtained and revealed leukocytosis (WBC 12.1), mild anemia (hgb 11.9), slight elevation in her creatine at 1.3 and hyperglycemia (Glu 150). UA revealed 50-200 WBC with 3 + bacteria and + nitrates. CXR was unremarkable. She was given 1 L NS with some improvement in her vitals. Blood cultures were obtained and she was started on empiric treatment with Rocephin IV. Due to her sepsis secondary to UTI as indicated by fever, leukocytosis, elevated lactate (2.1) and tachycardia , the night tele-hospitalist was consulted and she was accepted into inpatient status for further evaluation, close monitoring, IV antibiotics and IV hydration. Her length of stay is expected to exceed more than 2 over nights. On exam, she is seen while resting in bed with nursing at the bedside attempting to replace her IV as the initial IV had infiltrated. She is non- verbal and does not appear to be in any acute distress. Repeat labs today revealed resolution of her leukocytosis (WBC 9.9) and improvement in creatine. Fasting hyperglycemia noted (Glu 193) with no known history of diabetes. Serial lactates trending down. She was noted to have a fever during the night of 103.7 which improved with Tylenol. Objective Vital signs: Temperature 98.8 F 01/02/18 11:47 Pulse Rate 83 01/02/18 11:47 Respiratory Rate 26 H 01/02/18 12:04 Blood Pressure 124/68 01/02/18 11:47 Pulse Oximetry 96 01/02/18 11:47 Height/Weight/BMI: Height 5 ft 6 in Weight 144 lb 2.917 oz Body Mass Index 21.2 Comments: Patient is resting in bed, upright, and awakens easily with soft voice stimuli. At baseline. Denies any pain or concerns. - Constitutional Present: no acute distress, well nourished, well developed, thin, cooperative - Routine HEENT Exam Head: Present: normocephalic, atraumatic Eye: Present: PERRL. Absent: conjunctival icterus ENT: Present: mucous membranes moist - Routine Respiratory Exam Present: decreased breath sounds, crackles (faint, bibasilar). Absent: respiratory distress, wheezes Comments: No cough or respiratory distress. - Routine Cardiovascular Exam Present: S1, S2, irregular rhythm - Routine Abdominal Exam Present: soft, normoactive bowel sounds, non tender - Routine Extremities Exam Present: edema (right > left), pulses intact Comments: 1-2+ pitting edema noted to right foot as compared to left with trace-1+. Ecchymosis noted to right dorsal lateral foot as well as dorsal right great toe. Has callous on plantar surface of R great toe and on ball of L foot.), normal capillary refill. - Routine Back/Spine/Pelvis Exam Back/Spine: Present: kyphosis. Absent: vertebral tenderness - Routine Skin Exam Present: dry, warm Comments: Afebrile on exam. Intermittent low-grade temperatures throughout hospitalization. - Routine Neurological Exam Present: alert, hearing grossly intact Awakens easily with soft touch and voice stimuli. - Routine Psychiatric Exam Present: cooperative Comments: At baseline. Hospital Course This is a general summary of the patient's hospital course. For more details refer to the complete medical record. Hospital course: Patient was admitted to inpatient status under the hospitalist service by the night tele-hospitalist on the evening of 12/29/17 for treatment of severe sepsis secondary to UTI. She was started on Rocephin 1 IV Q24 hours on admission. Blood cultures were obtained on admission and remained negative at time of discharge (x 3 days). Urine culture revealed pansensitive E.coli, sensitive to treatment with Rocephin. Serial lactates were monitored and trended down - 2.1-- >1.8-->0.7. Patient continues to have intermittent fevers throughout admission despite apparent clinical improvement. Initial leukocytosis present on admission, resolved on 12/30/17. On admission, she was noted to have hyperglycemia without a known history of diabetes. BGMs were monitored closely and improved with treatment of sepsis. Home medications were continued including home clonidine and lisinopril. CXR on admission was unremarkable without focal pneumonia. Initial diet on admission was reported to be pureed meats and nectar thickened liquids. Patient was seen and evaluated by speech therapy shortly after admission due to expressed concerns by nursing for aspiration. Speech therapy recommended continuation of pureed diet with syrup thick liquids with assisted feelings of small bites at a slow rate. [facility] the [facility] appeared to be back at mental baseline. Repeat CXR on 12/31/17 revealed mild pulmonary vascular congestion most likely related to hydration therapy following admission. Weight trended up, though patient did not appear overtly fluid overloaded and respiratory status has remained stable. Nursing again expressed concern about possible recurrent aspiration with eating. It was recommended that the patient remain NPO to minimize risk of aspiration. Family and DPOA expressed that they do not want to have a feeding tube placed. Patient will continue with home medications and family request that she receive feedings in the safest way possible. Speech recommended all feedings be done upright and that the patient remain upright following feedings. Discussions with family regarding the patient's current code status occurred and family is looking into having the patient be a DNR. Discharge back to [facility] today, 01/02/18. Will change IV Rocephin to oral Keflex TID for an additional 3 days to complete treatment course. Patient to follow up with Dr. Hood who was notified by Dr. Barboza of aspiration concerns and treatment plans. Time spent with patient: greater than 35 minutes Resuscitation Status: Full Code Discharge Plan - Discharge Disposition Discharge Date: 01/02/18 Disposition: 01 Discharged Home,Parent Care *Condition: Improved Reason For Visit (Visit label in EMR): sepsis UTI - Discharge Medications *Discharge Medications: New cephALEXin [Keflex] 500 mg PO TID #9 cap Continue Fluticasone Nasal [place] [Flonase] 2 spray EA NOSTRIL DAILY #0 ml Albuterol/Ipratropium [Duoneb] 1 unit AEROSOL QID Gabapentin 300 mg PO HS Sertraline [Zoloft] 150 mg PO QAM Loratadine [Claritin] 10 mg PO DAILY Lisinopril [Prinivil] 10 mg PO DAILY CloNIDine [Catapres] 0.1 mg PO HS OLANZapine [Zyprexa Zydis] 20 mg PO HS ClonazePAM [Klonopin] 1 mg PO TID Senna + Docusate [Senna Plus Tablet] 1 tab PO DAILY Esomeprazole Magnesium [Nexium] 40 mg PO DAILY #0 cap Acetaminophen 650 mg PO TID #0 tab Hypromellose [Systane Gel] 1 drop OP TID Vitamin E (Dl,Tocopheryl Acet) [Vitamin E] 100 unit PO DAILY - Discharge Packet/Instructions *Diet: Pured diet with syrup thickened liquids; patient should be upright/ seated at 90 for all intake and should remain upright for at least 30 minutes after meals. At high risk for aspiration. *Activity: As tolerates with assistance *Pain Management/Treatment: Tylenol as needed *Wound Care: Mepilex dressing over sacrum, reapply as needed or every 3 days *Expected Signs/Symptoms: Coughing with meals, low-grade fevers intermittently due to aspiration; may require low flow oxygen at times due to aspiration *Notify Physician if: Significant choking, high fever, deteriorating mental status. *During Business Hours Contact: Dr. Hood. *After Business Hours Contact: Dr. Hood *Pending Lab/Results: No Pending Lab - Referrals/Follow Up *Referrals/Follow Up: Lavern Hood MD [Primary Care Provider] - 1 Week - Patient Handouts Patient Handouts: Urinary Tract Infection in Women (GEN) - Dismissal Complete Discharge Instructions are:: Complete Physician Narrative - Narrative Physician: Radha Barboza MD Attestation Narrative: Date: 01/02/18 Time: 2049 I have independently evaluated and examined this patient. I reviewed the chart, the patient's history, and the RECORDS ANALYSIS MANAGER/PA's documented findings as above. We discussed and formulated the assessment and plan as above with additions as below: Mrs. Snider symmetrically earlier today at which time discharge was tentatively planned and discharge paperwork was completed. It was subsequently learned that her home facility felt patient's needs exceeded their capacity and that they have been recommending consideration of hospice and transfer to an alternate facility. They declined to take the patient back. The patient's guardian declined feeding tube and is looking into pursuing DO NOT RESUSCITATE order via the court. When seen earlier today the patient reported no concerns. On examination the patient had left nasolabial fold droop, minimal speech, and benign abdomen. Multiple discussions with case management throughout the day; Dr. Hood notified of planned discharge-will discuss change in status with her in the morning. Case management pursuing alternate discharge facilities. Speech therapy has recommended pured diet with thickened liquids, upright for all meals and patient to remain upright for at least 30 minutes following oral intake to minimize aspiration but felt to be at high risk for recurrent aspiration. Continue ceftriaxone for fifth day (today) after which antibiotics will be discontinued. Combined time patient care > 50 minutes; patient cannot actively participating care due to dementia however guardian was involved in coordinating care and over 50% of time was spent in coordination of care activities.
[2018-01-02] MEDS: CEFTRIAXONE 1 G in NS 100 ML IV SCH (20:45)
[2018-01-02] MEDS: GABAPENTIN 300 MG CAPSULE PO SCH (20:46)
[2018-01-02] MEDS: OLANZapine 10 MG TABLET PO SCH (20:46)
--- NOTE | 2018-01-02 21:14 | Progress Note ---
Progress Note: When seen earlier today the patient denied abdominal pain or dyspnea but is minimally communicative responding with only 1 word answers. Nursing reports good urine output, occasional low-grade tachycardia, and a small skin tear on the sacrum. Increased cough has been reported by nursing when she swallows and speech therapy reevaluated earlier today describing worsening aspiration. Feeding tube was recommended or pured diet with thickened liquids if family/ guardian did not wish to pursue feeding tube. Please refer to discharge summary dictated earlier today for full examination documented by Giovanna FREEMAN. When I examined the patient earlier today she had mild left nasolabial fold droop, minimal speech and benign abdominal exam. Case management contacted the patient's guardian (Karen Ramirez) regarding feeding tube-she indicated that she did not believe feeding tube would be appropriate given patient's age and overall health. She is looking into option for DO NOT RESUSCITATE order and later faxed back paperwork for [address] designated DO NOT RESUSCITATE. Plans to discharge the patient were canceled when [facility] reported that they are unable to meet the patient's needs at this time and declined to have her return to their facility. They indicated that they felt hospice care was appropriate and recommended alf placement. Case management is aware and will pursue alternate facilities tomorrow. Discharge canceled; will discuss further with Dr. Hood tomorrow. Greater than 50 minutes spent in patient care and care coordination between myself and Giovanna FREEMAN.
[2018-01-02] MEDS: SALINE FLUSH 10ml SYRINGE IVF PRN (21:45)
[2018-01-03] MEDS: OMEPRAZOLE 20 MG CAPSULE PO SCH (06:11)
[2018-01-03] MEDS: ALBUTEROL/IPRATROPIUM 2.5mg-0.5mg/3ml NEB AEROSOL SCH ×4 (07:08→19:17)
[2018-01-03] MEDS: LISINOPRIL 10 MG TABLET PO SCH (10:34)
[2018-01-03] MEDS: ClonazePAM 1 MG TABLET PO SCH ×3 (10:35→21:44)
[2018-01-03] MEDS: SERTRALINE 100 MG TABLET PO SCH (10:36)
[2018-01-03] MEDS: SENNA + DOCUSATE TABLET PO SCH (10:36)
[2018-01-03] MEDS: LORATADINE 10 MG TABLET PO SCH (10:36)
[2018-01-03] MEDS: FLUTICASONE NASAL SPRAY 50mcg EA NOSTRIL SCH (10:38)
[2018-01-03] MEDS: GENTEAL EYE EACH EYE SCH ×3 (10:38→21:48)
[2018-01-03] MEDS: POLYETHYL GLYCOL 3350 17gm PACKET PO SCH (11:04)
--- NOTE | 2018-01-03 13:45 | Progress Note ---
- Date 01/03/18 Subjective: Patient is seen today sitting in bed. She responds "no" when asked if she has any pain. SHe also denied CP or SOA. SHe states "I need to go poo." Nurse reports she commonly makes this statement. Objective Vital signs: Temperature 99 F 01/03/18 12:00 Pulse Rate 92 01/03/18 12:00 Respiratory Rate 22 01/03/18 12:00 Blood Pressure 118/65 01/03/18 12:00 Pulse Oximetry 97 01/03/18 12:00 Height/Weight/BMI: Height 1.68 m Weight 61.3 kg Body Mass Index 21.2 - Constitutional Present: no acute distress, well nourished, well developed - Routine HEENT Exam Head: Present: normocephalic, atraumatic - Routine Respiratory Exam Present: decreased breath sounds, CTA bilaterally (anteriorly). Absent: wheezes - Routine Cardiovascular Exam Present: irregular rhythm - Routine Abdominal Exam Present: soft, non distended, non tender - Routine Extremities Exam Present: edema (R foot ), no edema (L foot), normal capillary refill - Routine Skin Exam Present: dry, warm - Routine Neurological Exam Present: alert - Routine Lymphatic Exam Lymphatic: Absent: adenopathy - Routine Psychiatric Exam Present: cooperative Results - Labs CBC & Chem 7: 01/03/18 04:43 01/03/18 04:43 Assessment and Plan (1) UTI (urinary tract infection) Current visit: Yes Status: Acute (2) Sepsis Current visit: Yes Status: Acute Assessment and Plan: Assessment: Severe sepsis secondary to UTI as indicated by fever, tachycardia, leukocytosis , lactic acidosis (2.1), hyperglycemia in non-diabetic - improving. UTI, present on admission. Anemia, mild, present on admission. Hyperglycemia in non-diabetic, present on admission. Hypertension. 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 Bipolar disorder. GERD. Seasonal allergies. Constipation. Interstitial cystitis. History of ureteral stenosis. Chronic pain. Personality disorder Oropharyngeal dysphagia. COPD. Osteoarthritis. Recurrent aspiration Plan Discharge was canceled yesterday as [facility] did not feel comfortable taking her back unless she was on hospice. At this time, case management is working with patient's guardian to get a DO NOT RESUSCITATE in place and to discuss hospice. Case discussed with speech therapy. She reports when they worked with patient yesterday she was choking on everything and is at risk for aspiration. Rec NPO. Nurses state today the patient is choking on everything again as well. For now will place patient on nothing by mouth status. Family/guardian do not wish to pursue feeding tube at this time. Will continue Rocephin as pt is still running low grade temp. Today is day #4. DVT Prophylaxis: SCD's Resuscitation Status: Full Code - Physician Narrative Physician: Radha Barboza MD Narrative: Date: 01/03/18 Time: 2039 I have independently evaluated and examined this patient. I reviewed the chart, the patient's history, and the SOFTWARE DEVELOPER MANAGER/PA's documented findings as above. We discussed and formulated the assessment and plan as above with additions as below: Marilia was seated in bed was seen and reported that she was fine denying abdominal pain or dyspnea. Respirations were nonlabored with clear breath sounds anteriorly Abdomen soft, nontender Extensive discussions have taken place today between myself, case management, Ms. Ramirez-patient's guardian, and Dr. Hood. Paperwork completed by Dr. Hood and myself to allow guardian to petition court for DO NOT RESUSCITATE order. Guardian met with representatives from [facility] and has signed on for hospice care; she prefers discharge to [facility] but is open to alternate facilities if necessary. At present she would like thickened liquids continued and necessary medications continued. Several medication modifications made including discontinuation of nonessential medications (MiraLAX, lisinopril , loratadine) or medications which can be substituted readily ([place]) and Roxanol initiated with Lorazepam Intensol prn if unable to take usual psychiatric medications. Will try to continue home psychiatric regimen. Patient has now completed 6 days of ceftriaxone (12/29-01/03). Discontinued. Anticipate intermittent low-grade fever with aspiration. >60 min total spent in patient care/coordination of care today. Hospital Course Summary Disclaimer: The visit summary below is not to be considered part of the above Progress Note. Hospital Course: Patient was admitted to inpatient status under the hospitalist service by the night tele-hospitalist on the evening of 12/29/17 for treatment of severe sepsis secondary to UTI. She was started on Rocephin 1 IV Q24 hours on admission. Blood cultures were obtained on admission and remained negative at time of discharge (x 3 days). Urine culture revealed pansensitive E.coli, sensitive to treatment with Rocephin. Serial lactates were monitored and trended down - 2.1-- >1.8-->0.7. Patient continues to have intermittent fevers throughout admission despite apparent clinical improvement. Initial leukocytosis present on admission, resolved on 12/30/17. On admission, she was noted to have hyperglycemia without a known history of diabetes. BGMs were monitored closely and improved with treatment of sepsis. Home medications were continued including home clonidine and lisinopril. CXR on admission was unremarkable without focal pneumonia. Initial diet on admission was reported to be pureed meats and nectar thickened liquids. Patient was seen and evaluated by speech therapy shortly after admission due to expressed concerns by nursing for aspiration. Speech therapy recommended continuation of pureed diet with syrup thick liquids with assisted feelings of small bites at a slow rate. On 12/31/17, staff from [facility] noted the patient appeared to be back at mental baseline. Repeat CXR on 12/31/17 revealed mild pulmonary vascular congestion most likely related to hydration therapy following admission. Weight trended up, though patient did not appear overtly fluid overloaded and respiratory status has remained stable. Nursing again expressed concern about possible recurrent aspiration with eating. It was recommended that the patient remain NPO to minimize risk of aspiration. Family and DPOA expressed that they do not want to have a feeding tube placed. Patient will continue with home medications and family request that she receive feedings in the safest way possible. Speech recommended all feedings be done upright and that the patient remain upright following feedings. Discussions with family regarding the patient's current code status occurred and family is looking into having the patient be a DNR. Discharge back to [facility] today, 01/02/18. Will change IV Rocephin to oral Keflex TID for an additional 3 days to complete treatment course. Patient to follow up with Dr. Hood who was notified by Dr. Barboza of aspiration concerns and treatment plans. 01/03/18 Discharge was canceled yesterday as [facility] did not feel comfortable taking her back unless she was on hospice. At this time, case management is working with patient's guardian to get a DO NOT RESUSCITATE in place and to discuss hospice. Case discussed with speech therapy. She reports when they worked with patient yesterday she was choking on everything and is at risk for aspiration. Rec NPO. Nurses state today the patient is choking on everything again as well. For now will place patient on nothing by mouth status. Guardian does not wish to pursue feeding tube at this time. Paperwork completed by Dr. Hood and Dr. Barboza to allow guardian to petition court for DO NOT RESUSCITATE order. Guardian met with representatives from [facility] the [facility] and has signed on for hospice care; she prefers discharge to [facility] but is open to alternate facilities if necessary. At present she would like thickened liquids continued and necessary medications continued. Several medication modifications made including discontinuation of nonessential medications (MiraLAX, lisinopril , loratadine) or medications which can be substituted readily ([place]) and Roxanol initiated with Lorazepam Intensol prn if unable to take usual psychiatric medications. Will try to continue home psychiatric regimen. Patient has now completed 6 days of ceftriaxone (12/29-01/03). Discontinued.
[2018-01-03] MEDS ORDERED: CEFTRIAXONE 1 G in NS 100 ML IV SCH (14:00)
[2018-01-03] MEDS ORDERED: NS FLUSH BAG 500ml IV PRN (17:07)
[2018-01-03] MEDS ORDERED: POTASSIUM CHLORIDE INJ 20 MEQ in D5NS 1,000 ML IV SCH (19:15)
[2018-01-03] MEDS ORDERED: LORazepam INTENSOL 1mg/0.5ml ORAL LIQUID PO PRN (19:16)
[2018-01-03] MEDS ORDERED: MORPHINE SULFATE 10mg/0.5ml ORAL LIQ PO PRN (19:16)
[2018-01-03] MEDS: GABAPENTIN 300 MG CAPSULE PO SCH (21:44)
[2018-01-03] MEDS: OLANZapine 10 MG TABLET PO SCH (21:48)
[2018-01-04] MEDS: OMEPRAZOLE 20 MG CAPSULE PO SCH ×2 (06:30→06:33)
[2018-01-04] MEDS: ALBUTEROL/IPRATROPIUM 2.5mg-0.5mg/3ml NEB AEROSOL SCH ×4 (07:00→19:09)
[2018-01-04] MEDS: ClonazePAM 1 MG TABLET PO SCH ×3 (10:05→20:43)
[2018-01-04] MEDS: FLUTICASONE NASAL SPRAY 50mcg EA NOSTRIL SCH (10:06)
[2018-01-04] MEDS: GENTEAL EYE EACH EYE SCH ×3 (10:06→20:44)
[2018-01-04] MEDS: SERTRALINE 100 MG TABLET PO SCH (10:07)
[2018-01-04] MEDS: SENNA + DOCUSATE TABLET PO SCH (10:07)
--- NOTE | 2018-01-04 14:09 | Progress Note ---
- Date 01/04/18 Subjective: Marilia was resting in bed, eyes open. She denied having any pain. She admitted to feeling good. She reports that she ate lunch and it was good. She is incontinent of B/B. IV infiltrated this am -- not restarted. Objective Vital signs: Temperature 97.2 F 01/04/18 11:30 Pulse Rate 64 01/04/18 11:30 Respiratory Rate 16 01/04/18 12:00 Blood Pressure 130/67 01/04/18 11:30 Pulse Oximetry 94 01/04/18 12:00 Height/Weight/BMI: Height 1.68 m Weight 61.6 kg Body Mass Index 21.2 - Constitutional Present: no acute distress, thin - Routine HEENT Exam Head: Present: normocephalic Eye: Absent: conjunctival icterus, scleral injection ENT: Present: nares patent (mild drainage) - Routine Respiratory Exam Present: CTA bilaterally - Routine Cardiovascular Exam Present: RRR, S1, S2, murmur - Routine Abdominal Exam Present: soft, normoactive bowel sounds, non distended, non tender - Routine Extremities Exam Present: edema (trace ble) - Routine Skin Exam Present: intact, dry, warm - Routine Neurological Exam Present: alert. Absent: oriented X3 - Routine Psychiatric Exam Present: cooperative Results - Labs CBC & Chem 7: 01/03/18 04:43 01/03/18 04:43 Assessment and Plan (1) UTI (urinary tract infection) Current visit: Yes Status: Acute (2) Sepsis Current visit: Yes Status: Acute Assessment and Plan: Assessment: Severe sepsis secondary to UTI as indicated by fever, tachycardia, leukocytosis , lactic acidosis (2.1), hyperglycemia in non-diabetic - improving. UTI, present on admission. Anemia, mild, present on admission. Hyperglycemia in non-diabetic, present on admission. Hypertension. 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 Bipolar disorder. GERD. Seasonal allergies. Constipation. Interstitial cystitis. History of ureteral stenosis. Chronic pain. Personality disorder Oropharyngeal dysphagia. COPD. Osteoarthritis. Recurrent aspiration Plan Change diet to full [thickened] liquid - aspiration risk discussed with guardian. Abx course for UTI completed. Discharge plans in progress. Resuscitation Status: comfort care - Physician Narrative Physician: Radha Barboza MD Narrative: Date: 01/04/18 Time: 2244 I have independently evaluated and examined this patient. I reviewed the chart, the patient's history, and the DRAWER IN/PA's documented findings as above. We discussed and formulated the assessment and plan as above with additions as below: Marilia was seen midafternoon at which time she was sleeping initially but awoke to exam and nodded no when asked if she was having pain or difficulty sleeping. I later spoke with her guardian who confirmed that she had signed on with [facility] yesterday and requested that comfort care be initiated while the patient is hospitalized. She confirmed that she does not want fluids or food with held if the patient requests either acknowledging that the patient is at risk for aspiration. NAD, resting comfortably, drowsy Respirations nonlabored Regular rhythm with systolic murmur Discussed with nursing and case management-Medicaid restrictions complicating discharge; Comfort care order written, continue psychiatric medications. Hospital Course Summary Disclaimer: The visit summary below is not to be considered part of the above Progress Note. Hospital Course: Patient was admitted to inpatient status under the hospitalist service by the night tele-hospitalist on the evening of 12/29/17 for treatment of severe sepsis secondary to UTI. She was started on Rocephin 1 IV Q24 hours on admission. Blood cultures were obtained on admission and remained negative at time of discharge (x 3 days). Urine culture revealed pansensitive E.coli, sensitive to treatment with Rocephin. Serial lactates were monitored and trended down - 2.1-- >1.8-->0.7. Patient continues to have intermittent fevers throughout admission despite apparent clinical improvement. Initial leukocytosis present on admission, resolved on 12/30/17. On admission, she was noted to have hyperglycemia without a known history of diabetes. BGMs were monitored closely and improved with treatment of sepsis. Home medications were continued including home clonidine and lisinopril. CXR on admission was unremarkable without focal pneumonia. Initial diet on admission was reported to be pureed meats and nectar thickened liquids. Patient was seen and evaluated by speech therapy shortly after admission due to expressed concerns by nursing for aspiration. Speech therapy recommended continuation of pureed diet with syrup thick liquids with assisted feelings of small bites at a slow rate. On 12/31/17, staff from [facility] noted the patient appeared to be back at mental baseline. Repeat CXR on 12/31/17 revealed mild pulmonary vascular congestion most likely related to hydration therapy following admission. Weight trended up, though patient did not appear overtly fluid overloaded and respiratory status has remained stable. Nursing again expressed concern about possible recurrent aspiration with eating. It was recommended that the patient remain NPO to minimize risk of aspiration. Family and DPOA expressed that they do not want to have a feeding tube placed. Patient will continue with home medications and family request that she receive feedings in the safest way possible. Speech recommended all feedings be done upright and that the patient remain upright following feedings. Discussions with family regarding the patient's current code status occurred and family is looking into having the patient be a DNR. Discharge back to [facility] today, 01/02/18. Will change IV Rocephin to oral Keflex TID for an additional 3 days to complete treatment course. Patient to follow up with Dr. Hood who was notified by Dr. Barboza of aspiration concerns and treatment plans. 01/03/18 Discharge was canceled yesterday as [facility] did not feel comfortable taking her back unless she was on hospice. At this time, case management is working with patient's guardian to get a DO NOT RESUSCITATE in place and to discuss hospice. Case discussed with speech therapy. She reports when they worked with patient yesterday she was choking on everything and is at risk for aspiration. Rec NPO. Nurses state today the patient is choking on everything again as well. For now will place patient on nothing by mouth status. Guardian does not wish to pursue feeding tube at this time. Paperwork completed by Dr. Hood and Dr. Barboza to allow guardian to petition court for DO NOT RESUSCITATE order. Guardian met with representatives from [facility] and has signed on for hospice care; she prefers discharge to [facility] but is open to alternate facilities if necessary. At present she would like thickened liquids continued and necessary medications continued. Several medication modifications made including discontinuation of nonessential medications (MiraLAX, lisinopril , loratadine) or medications which can be substituted readily ([place]) and Roxanol initiated with Lorazepam Intensol prn if unable to take usual psychiatric medications. Will try to continue home psychiatric regimen. Patient has now completed 6 days of ceftriaxone (12/29-7/6). Discontinued. 01/04/18 Change diet to full [thickened] liquid - aspiration risk discussed with guardian. Abx course for UTI completed. Discharge plans in progress.
[2018-01-04] MEDS: OLANZapine 10 MG TABLET PO SCH (20:43)
[2018-01-04] MEDS: GABAPENTIN 300 MG CAPSULE PO SCH (20:44)
[2018-01-05] MEDS: OMEPRAZOLE 20 MG CAPSULE PO SCH (06:36)
[2018-01-05] MEDS: ALBUTEROL/IPRATROPIUM 2.5mg-0.5mg/3ml NEB AEROSOL SCH ×4 (07:25→19:16)
[2018-01-05] MEDS: ClonazePAM 1 MG TABLET PO SCH ×3 (08:53→20:32)
[2018-01-05] MEDS: SENNA + DOCUSATE TABLET PO SCH (08:54)
[2018-01-05] MEDS: SERTRALINE 100 MG TABLET PO SCH (08:54)
[2018-01-05] MEDS: GENTEAL EYE EACH EYE SCH ×3 (08:55→20:24)
[2018-01-05] MEDS: FLUTICASONE NASAL SPRAY 50mcg EA NOSTRIL SCH (08:55)
--- NOTE | 2018-01-05 11:28 | Progress Note ---
- Date 01/05/18 Subjective: Marilia is resting quietly. Is unhappy that I woke her up during exam, but denies other concerns. Does seem to be confused, but appears comfortable. Objective Vital signs: Temperature 98.1 F 01/05/18 08:00 Pulse Rate 83 01/05/18 08:00 Respiratory Rate 22 01/05/18 11:00 Blood Pressure 132/67 01/05/18 08:00 Pulse Oximetry 94 01/05/18 11:00 Height/Weight/BMI: Height 1.68 m Weight 59.7 kg Body Mass Index 21.2 - Constitutional Present: no acute distress, average body habitus, cooperative - Routine HEENT Exam Head: Present: normocephalic, atraumatic Eye: Present: EOMI, PERRL - Routine Respiratory Exam Present: CTA bilaterally. Absent: rales, rhonchi, stridor - Routine Cardiovascular Exam Present: RRR, S1, S2 - Routine Abdominal Exam Present: soft, normoactive bowel sounds, non distended, non tender - Routine Extremities Exam Present: non tender - Routine Musculoskeletal Exam Musculoskeletal: Present: no clubbing or cyanosis - Routine Skin Exam Present: intact, dry, warm - Routine Neurological Exam Present: alert, moving all extremities. Absent: oriented X3 - Routine Psychiatric Exam Present: cooperative. Absent: good insight, good judgment Results - Labs CBC & Chem 7: 01/03/18 04:43 01/03/18 04:43 Assessment and Plan (1) UTI (urinary tract infection) Current visit: Yes Status: Acute (2) Sepsis Current visit: Yes Status: Acute Assessment and Plan: Assessment: Severe sepsis secondary to UTI as indicated by fever, tachycardia, leukocytosis , lactic acidosis (2.1), hyperglycemia in non-diabetic - improving. UTI, present on admission. Anemia, mild, present on admission. Hyperglycemia in non-diabetic, present on admission. Hypertension. 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 Bipolar disorder. GERD. Seasonal allergies. Constipation. Interstitial cystitis. History of ureteral stenosis. Chronic pain. Personality disorder Oropharyngeal dysphagia. COPD. Osteoarthritis. Recurrent aspiration Plan 01/05/18 Continue comfort measures- plans to dismiss to [facility] with hospice. Court has been petitioned for DNR order, case discussed with guardian. Full liquids ongoing for comfort per guardian despite aspiration risk. DC planning. Continue home supportive meds. DVT Prophylaxis: SCD's GI Prophylaxis: Omeprazole - Physician Narrative Physician: Radha Barboza MD Narrative: Date: 01/05/18 Time: 1750 I have independently evaluated and examined this patient. I reviewed the chart, the patient's history, and the CHAPLAIN/PA's documented findings as above. We discussed and formulated the assessment and plan as above with additions as below: Marilia was resting comfortably when seen. She denied pain or dyspnea. Nursing reported that she is tolerating medications orally and pured foods when upright. Respirations nonlabored, abdomen soft. Continue current comfort-based care. Hospital Course Summary Disclaimer: The visit summary below is not to be considered part of the above Progress Note. Hospital Course: Patient was admitted to inpatient status under the hospitalist service by the night tele-hospitalist on the evening of 12/29/17 for treatment of severe sepsis secondary to UTI. She was started on Rocephin 1 IV Q24 hours on admission. Blood cultures were obtained on admission and remained negative at time of discharge (x 3 days). Urine culture revealed pansensitive E.coli, sensitive to treatment with Rocephin. Serial lactates were monitored and trended down - 2.1-- >1.8-->0.7. Patient continues to have intermittent fevers throughout admission despite apparent clinical improvement. Initial leukocytosis present on admission, resolved on 12/30/17. On admission, she was noted to have hyperglycemia without a known history of diabetes. BGMs were monitored closely and improved with treatment of sepsis. Home medications were continued including home clonidine and lisinopril. CXR on admission was unremarkable without focal pneumonia. Initial diet on admission was reported to be pureed meats and nectar thickened liquids. Patient was seen and evaluated by speech therapy shortly after admission due to expressed concerns by nursing for aspiration. Speech therapy recommended continuation of pureed diet with syrup thick liquids with assisted feelings of small bites at a slow rate. On 12/31/17, staff from [facility] noted the patient appeared to be back at mental baseline. Repeat CXR on 12/31/17 revealed mild pulmonary vascular congestion most likely related to hydration therapy following admission. Weight trended up, though patient did not appear overtly fluid overloaded and respiratory status has remained stable. Nursing again expressed concern about possible recurrent aspiration with eating. It was recommended that the patient remain NPO to minimize risk of aspiration. Family and DPOA expressed that they do not want to have a feeding tube placed. Patient will continue with home medications and family request that she receive feedings in the safest way possible. Speech recommended all feedings be done upright and that the patient remain upright following feedings. Discussions with family regarding the patient's current code status occurred and family is looking into having the patient be a DNR. Discharge back to [facility] today, 01/02/18. Will change IV Rocephin to oral Keflex TID for an additional 3 days to complete treatment course. Patient to follow up with Dr. Hood who was notified by Dr. Barboza of aspiration concerns and treatment plans. 01/03/18 Discharge was canceled yesterday as [facility] did not feel comfortable taking her back unless she was on hospice. At this time, case management is working with patient's guardian to get a DO NOT RESUSCITATE in place and to discuss hospice. Case discussed with speech therapy. She reports when they worked with patient yesterday she was choking on everything and is at risk for aspiration. Rec NPO. Nurses state today the patient is choking on everything again as well. For now will place patient on nothing by mouth status. Guardian does not wish to pursue feeding tube at this time. Paperwork completed by Dr. Hood and Dr. Barboza to allow guardian to petition court for DO NOT RESUSCITATE order. Guardian met with representatives from [facility] and has signed on for hospice care; she prefers discharge to [facility] but is open to alternate facilities if necessary. At present she would like thickened liquids continued and necessary medications continued. Several medication modifications made including discontinuation of nonessential medications (MiraLAX, lisinopril , loratadine) or medications which can be substituted readily ([place]) and Roxanol initiated with Lorazepam Intensol prn if unable to take usual psychiatric medications. Will try to continue home psychiatric regimen. Patient has now completed 6 days of ceftriaxone (12/29-01/03). Discontinued. 01/04/18 Change diet to full [thickened] liquid - aspiration risk discussed with guardian. Abx course for UTI completed. Discharge plans in progress. 01/05/18 Continue comfort measures- plans to dismiss to NH with hospice. Court has been petitioned for DNR order, case discussed with guardian. Full liquids ongoing for comfort per guardian despite aspiration risk. DC planning. Continue home supportive meds.
[2018-01-05] MEDS: OLANZapine 10 MG TABLET PO SCH (20:31)
[2018-01-05] MEDS: GABAPENTIN 300 MG CAPSULE PO SCH (20:32)
[2018-01-06] MEDS: OMEPRAZOLE 20 MG CAPSULE PO SCH (06:08)
[2018-01-06] MEDS: ALBUTEROL/IPRATROPIUM 2.5mg-0.5mg/3ml NEB AEROSOL SCH ×4 (08:18→19:47)
[2018-01-06] MEDS: ClonazePAM 1 MG TABLET PO SCH ×3 (08:54→21:46)
[2018-01-06] MEDS: SENNA + DOCUSATE TABLET PO SCH (08:55)
[2018-01-06] MEDS: SERTRALINE 100 MG TABLET PO SCH (08:55)
[2018-01-06] MEDS: FLUTICASONE NASAL SPRAY 50mcg EA NOSTRIL SCH (08:55)
[2018-01-06] MEDS: GENTEAL EYE EACH EYE SCH ×3 (08:55→21:47)
[2018-01-06] MEDS: OLANZapine 10 MG TABLET PO SCH (21:46)
[2018-01-06] MEDS: GABAPENTIN 300 MG CAPSULE PO SCH (21:46)
--- NOTE | 2018-01-06 22:05 | Progress Note ---
- Date 01/06/18 Subjective: Marilia was resting comfortably in bed when seen. She reported that she was fine and denied dyspnea or pain. Nursing report that she is taking medications without difficulty and having less trouble swallowing thickened liquids and pur ed foods today than she did last week. Objective Vital signs: Temperature 97.1 F 01/06/18 20:13 Pulse Rate 95 01/06/18 20:13 Respiratory Rate 16 01/06/18 21:46 Blood Pressure 151/84 H 01/06/18 20:13 Pulse Oximetry 96 01/06/18 20:13 NAD, soft spoken, minimal speech Respirations nonlabored, breath sounds clear anteriorly Regular rhythm, S1-S2 Height/Weight/BMI: Height 1.68 m Weight 59.5 kg Body Mass Index 21.2 Results - Labs CBC & Chem 7: 01/03/18 04:43 01/03/18 04:43 Assessment and Plan (1) UTI (urinary tract infection) Current visit: Yes Status: Acute (2) Sepsis Current visit: Yes Status: Acute Assessment and Plan: Assessment: Severe sepsis secondary to UTI as indicated by fever, tachycardia, leukocytosis , lactic acidosis (2.1), hyperglycemia in non-diabetic -treated UTI, present on admission. Anemia, mild, present on admission. Hyperglycemia in non-diabetic, present on admission. Hypertension. 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 Bipolar disorder. GERD. Seasonal allergies. Constipation. Interstitial cystitis. History of ureteral stenosis. Chronic pain. Personality disorder Oropharyngeal dysphagia. COPD. Osteoarthritis. Recurrent aspiration Plan Continue comfort measures; DO NOT RESUSCITATE order written after court order received. Pured diet with thickened liquids. Continue medications for chronic psychiatric disease in addition to comfort medications. longterm placement underway. - Physician Narrative Narrative: Date: 01/06/18 Time: 2200 Hospital Course Summary Disclaimer: The visit summary below is not to be considered part of the above Progress Note. Hospital Course: Patient was admitted to inpatient status under the hospitalist service by the night tele-hospitalist on the evening of 12/29/17 for treatment of severe sepsis secondary to UTI. She was started on Rocephin 1 IV Q24 hours on admission. Blood cultures were obtained on admission and remained negative at time of discharge (x 3 days). Urine culture revealed pansensitive E.coli, sensitive to treatment with Rocephin. Serial lactates were monitored and trended down - 2.1-- >1.8-->0.7. Patient continues to have intermittent fevers throughout admission despite apparent clinical improvement. Initial leukocytosis present on admission, resolved on 12/30/17. On admission, she was noted to have hyperglycemia without a known history of diabetes. BGMs were monitored closely and improved with treatment of sepsis. Home medications were continued including home clonidine and lisinopril. CXR on admission was unremarkable without focal pneumonia. Initial diet on admission was reported to be pureed meats and nectar thickened liquids. Patient was seen and evaluated by speech therapy shortly after admission due to expressed concerns by nursing for aspiration. Speech therapy recommended continuation of pureed diet with syrup thick liquids with assisted feelings of small bites at a slow rate. On 12/31/17, staff from [facility] noted the patient appeared to be back at mental baseline. Repeat CXR on 12/31/17 revealed mild pulmonary vascular congestion most likely related to hydration therapy following admission. Weight trended up, though patient did not appear overtly fluid overloaded and respiratory status has remained stable. Nursing again expressed concern about possible recurrent aspiration with eating. It was recommended that the patient remain NPO to minimize risk of aspiration. Family and DPOA expressed that they do not want to have a feeding tube placed. Patient will continue with home medications and family request that she receive feedings in the safest way possible. Speech recommended all feedings be done upright and that the patient remain upright following feedings. Discussions with family regarding the patient's current code status occurred and family is looking into having the patient be a DNR. [facility]charge back to [facility] today, 01/02/18. Will change IV Rocephin to oral Keflex TID for an additional 3 days to complete treatment course. Patient to follow up with Dr. Hood who was notified by Dr. Barboza of aspiration concerns and treatment plans. 01/03/18 Discharge was canceled yesterday as [facility] did not feel comfortable taking her back unless she was on hospice. At this time, case management is working with patient's guardian to get a DO NOT RESUSCITATE in place and to discuss hospice. Case discussed with speech therapy. She reports when they worked with patient yesterday she was choking on everything and is at risk for aspiration. Rec NPO. Nurses state today the patient is choking on everything again as well. For now will place patient on nothing by mouth status. Guardian does not wish to pursue feeding tube at this time. Paperwork completed by Dr. Hood and Dr. Barboza to allow guardian to petition court for DO NOT RESUSCITATE order. Guardian met with representatives from [facility] and has signed on for hospice care; she prefers discharge to [facility] but is open to alternate facilities if necessary. At present she would like thickened liquids continued and necessary medications continued. Several medication modifications made including discontinuation of nonessential medications (MiraLAX, lisinopril , loratadine) or medications which can be substituted readily ([place]) and Roxanol initiated with Lorazepam Intensol prn if unable to take usual psychiatric medications. Will try to continue home psychiatric regimen. Patient has now completed 6 days of ceftriaxone (12/29-01/03). Discontinued. 01/04/18 Change diet to full [thickened] liquid - aspiration risk discussed with guardian. Abx course for UTI completed. Discharge plans in progress. 01/05/18 Continue comfort measures- plans to dismiss to NH with hospice. Court has been petitioned for DNR order, case discussed with guardian. Full liquids ongoing for comfort per guardian despite aspiration risk. DC planning. Continue home supportive meds. Continue comfort measures; DO NOT RESUSCITATE order written after court order received. Pured diet with thickened liquids. Continue medications for chronic psychiatric disease in addition to comfort medications. longterm placement underway.
[2018-01-07] MEDS: OMEPRAZOLE 20 MG CAPSULE PO SCH (06:39)
[2018-01-07] MEDS: ALBUTEROL/IPRATROPIUM 2.5mg-0.5mg/3ml NEB AEROSOL SCH ×4 (07:04→19:08)
[2018-01-07] MEDS: GENTEAL EYE EACH EYE SCH ×3 (12:06→20:31)
[2018-01-07] MEDS: FLUTICASONE NASAL SPRAY 50mcg EA NOSTRIL SCH (12:06)
[2018-01-07] MEDS: SERTRALINE 100 MG TABLET PO SCH (12:06)
[2018-01-07] MEDS: ClonazePAM 1 MG TABLET PO SCH ×3 (12:06→20:30)
[2018-01-07] MEDS: SENNA + DOCUSATE TABLET PO SCH (12:06)
--- NOTE | 2018-01-07 16:28 | Extended Care Facility Orders ---
Admission Orders Admit to:: ICF, Hospice Allergies/Adverse Reactions: Allergies No Known Allergies Allergy (Verified 12/29/17 18:19) Admitting Diagnosis: sepsis UTI Admitting Physician: Radha Barboza MD Attending Physician: Radha Barboza MD Code Status: comfort care/DNR Rehab Potential: poor Rehab Prognosis: poor Diet: Regular diet, pured diet, syrup thickened liquids Wound/Incision Care: mepilex dressing to coccyx-change q3d or sooner as needed Halfway Certification: I certify that SNF services are required to be given on an Inpatient basis because of the patients need for shelter care on a continuing basis for the condition(s) for which he/she received inpatient hospital services prior to his/her transfer to the SNF. SNF inpatient care is necessary for the following reasons Indication for Halfway: Not Applicable - Additional Information In Event of Arrest: Do Not Start CPR Resident is Aware of Diagnosis: No (dementia) Referrals: Lavern Hood MD [Primary Care Provider] - 1 Week Additional Orders: comfort care, patient should be upright with head of bed elevated 90 for all meals and should remain upright for 30 minutes after eating.
[2018-01-07] MEDS: OLANZapine 10 MG TABLET PO SCH (20:30)
[2018-01-07] MEDS: GABAPENTIN 300 MG CAPSULE PO SCH (20:30)
--- NOTE | 2018-01-07 21:00 | Progress Note ---
Progress Note: Marilia was resting in bed comfortably when seen this morning. She reported that she felt fine. She did not respond verbally to other questions. Respirations are nonlabored and she is saturating well on room air. Anterior breath sounds clear; regular cardiac rhythm Tolerating limited volume clear liquids-improved compared to last week Accepted for admission to care home in [place], transfer anticipated tomorrow. DO NOT RESUSCITATE/comfort care with anticipation of converting to hospice care at discharge. Nursing reports breakdown on coccyx-Mepilex dressing being used for skin protection. Continue comfort medications and psych meds.
[2018-01-07 23:27] VITALS: BP 98/53
[2018-01-08] MEDS: OMEPRAZOLE 20 MG CAPSULE PO SCH (06:16)
[2018-01-08] MEDS: ALBUTEROL/IPRATROPIUM 2.5mg-0.5mg/3ml NEB AEROSOL SCH ×2 (07:06→11:09)
[2018-01-08 08:14] VITALS: PULSE 64; TEMP 97.1
[2018-01-08] MEDS: SENNA + DOCUSATE TABLET PO SCH (08:15)
[2018-01-08] MEDS: ClonazePAM 1 MG TABLET PO SCH (08:15)
[2018-01-08] MEDS: SERTRALINE 100 MG TABLET PO SCH (08:16)
[2018-01-08] MEDS: GENTEAL EYE EACH EYE SCH (08:19)
[2018-01-08] MEDS: FLUTICASONE NASAL SPRAY 50mcg EA NOSTRIL SCH (08:20)
[2018-01-08 11:14] VITALS: RESP 20; O2SAT 94
--- NOTE | 2018-01-08 19:19 | Discharge Summary ---
Discharge Information Date of admission: 12/29/17 19:45 Anticipated date of discharge: 01/08/18 Attending Physician: Gianfranco Walters MD Primary care physician: Lavern Hood MD Consults: none - Discharge Diagnosis (1) UTI (urinary tract infection) Status: Acute (2) Sepsis Status: Acute Severe sepsis secondary to UTI as indicated by fever, tachycardia, leukocytosis , lactic acidosis (2.1), hyperglycemia in non-diabetic - improving. UTI, present on admission - pansensitive E.coli. Anemia, mild, present on admission. Hyperglycemia in non-diabetic, present on admission. Hypernatremia, not present on admission. Hypertension. 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 Bipolar disorder. GERD. Seasonal allergies. Constipation. Interstitial cystitis. History of ureteral stenosis. Chronic pain. Personality disorder Oropharyngeal dysphagia. COPD. Osteoarthritis. - Laboratory Labs: Laboratory Tests 01/03/18 01/03/18 04:43 04:43 WBC 6.0 RBC 3.20 L Hgb 9.4 L Plt Count 229 D Sodium 144 Potassium 3.7 Chloride 109 H Carbon Dioxide 26 BUN 17.0 Creatinine 0.8 GFR Calculation 68 Calcium 7.9 L - Microbiology Microbiology 12/29/17 18:34 Peripheral/Iv Start Blood Culture - Final No Growth After 5 Days 12/29/17 18:42 Peripheral/Iv Start Blood Culture - Final No Growth After 5 Days 12/29/17 19:09 Urine, Cath Straight Urine Culture - Final Escherichia coli - pansensitive - Radiology Radiology: Date of Exam: 12/29/17 Type of Exam(s): XR chest 1V Reason for Exam(s): poss. fever. Findings: Emphysema without focal pneumonia. Possible trace right effusion. No pneumothorax. Heart size and mediastinal contours are stable. Pulmonary vascularity appears normal. Impression: No focal pneumonia. Date of Exam: 01/01/18 Type of Exam(s): XR chest 1V Reason for Exam(s): fever Findings: Increasing interstitial prominence since the previous exam. Continued trace right effusion. No pneumothorax. Heart size and mediastinal contours are stable allowing for differences in rotation. Pulmonary vascularity is more prominent. Impression: Mild pulmonary vascular congestion or edema. No focal pneumonia. History of Present Illness HPI: ---Patient was initially seen and evaluated by night tele-hospitalist--- The pt is a MR developmentally delayed 82 yo who has lived at [facility] for the past 20 years who fell 3 days ago and was evaluated in the Er and sent back to the care home. The pt developed fevers today at the home of 102, with elevated BP's. She has been eating and drinking normally, her baseline is nonverbal and usually requires assistance with ambulation. She has not been yelling, voilent, no emesis, diarrhea, no rashes. 12/30/17 gale Snider is an 82-year-old female patient of Dr. Hood and a long time resident at [facility]. She has a history of MR developmental delay and is non- verbal so her history is primarily obtained from prior medical records, ED records and nursing notes. She was brought to [facility] ED yesterday evening, 12/29/17 , for evaluation of fevers. Records indicated that the nursing staff at [facility] noted foul smelling urine and stated that she recently became incontinent of urine which is unusual for her. She was also noted to be febrile at the senior living at 101.5 and appeared not to be feeling well. EMS was contacted and she was found to be tachycardic with a reported systolic blood pressure between 70-80s. Upon arrival to the ED, labs were obtained and revealed leukocytosis (WBC 12.1), mild anemia (hgb 11.9), slight elevation in her creatine at 1.3 and hyperglycemia (Glu 150). UA revealed 50-200 WBC with 3 + bacteria and + nitrates. CXR was unremarkable. She was given 1 L NS with some improvement in her vitals. Blood cultures were obtained and she was started on empiric treatment with Rocephin IV. Due to her sepsis secondary to UTI as indicated by fever, leukocytosis, elevated lactate (2.1) and tachycardia , the night tele-hospitalist was consulted and she was accepted into inpatient status for further evaluation, close monitoring, IV antibiotics and IV hydration. Her length of stay is expected to exceed more than 2 over nights. On exam, she is seen while resting in bed with nursing at the bedside attempting to replace her IV as the initial IV had infiltrated. She is non- verbal and does not appear to be in any acute distress. Repeat labs today revealed resolution of her leukocytosis (WBC 9.9) and improvement in creatine. Fasting hyperglycemia noted (Glu 193) with no known history of diabetes. Serial lactates trending down. She was noted to have a fever during the night of 103.7 which improved with Tylenol. Objective Vital signs: Temperature 97.1 F 01/08/18 08:00 Pulse Rate 64 01/08/18 08:00 Respiratory Rate 20 01/08/18 11:09 Blood Pressure 98/53 01/08/18 08:00 Pulse Oximetry 94 01/08/18 11:09 Height/Weight/BMI: Height 1.68 m Weight 59.7 kg Body Mass Index 21.2 - Constitutional Present: no acute distress, well nourished, well developed - Routine HEENT Exam Head: Present: normocephalic, atraumatic - Routine Respiratory Exam Present: CTA bilaterally. Absent: wheezes - Routine Cardiovascular Exam Present: irregular rhythm - Routine Abdominal Exam Present: soft, non distended, non tender - Routine Extremities Exam Present: normal capillary refill - Routine Skin Exam Present: dry, warm - Routine Neurological Exam Present: alert just answers questions with one word answers - Routine Lymphatic Exam Lymphatic: Absent: adenopathy - Routine Psychiatric Exam Present: normal affect, cooperative Hospital Course This is a general summary of the patient's hospital course. For more details refer to the complete medical record. Hospital course: Patient was admitted to inpatient status under the hospitalist service by the night tele-hospitalist on the evening of 12/29/17 for treatment of severe sepsis secondary to UTI. She was started on Rocephin 1 IV Q24 hours on admission. Blood cultures were obtained on admission and remained negative at time of discharge (x 3 days). Urine culture revealed pansensitive E.coli, sensitive to treatment with Rocephin. Serial lactates were monitored and trended down - 2.1-- >1.8-->0.7. Patient continues to have intermittent fevers throughout admission despite apparent clinical improvement. Initial leukocytosis present on admission, resolved on 12/30/17. On admission, she was noted to have hyperglycemia without a known history of diabetes. BGMs were monitored closely and improved with treatment of sepsis. Home medications were continued including home clonidine and lisinopril. CXR on admission was unremarkable without focal pneumonia. Initial diet on admission was reported to be pureed meats and nectar thickened liquids. Patient was seen and evaluated by speech therapy shortly after admission due to expressed concerns by nursing for aspiration. Speech therapy recommended continuation of pureed diet with syrup thick liquids with assisted feelings of small bites at a slow rate. On 12/31/17, staff from [facility] noted the patient appeared to be back at mental baseline. Repeat CXR on 12/31/17 revealed mild pulmonary vascular congestion most likely related to hydration therapy following admission. Weight trended up, though patient did not appear overtly fluid overloaded and respiratory status has remained stable. Nursing again expressed concern about possible recurrent aspiration with eating. It was recommended that the patient remain NPO to minimize risk of aspiration. Family and DPOA expressed that they do not want to have a feeding tube placed. Patient will continue with home medications and family request that she receive feedings in the safest way possible. Speech recommended all feedings be done upright and that the patient remain upright following feedings. Discussions with family regarding the patient's current code status occurred and family is looking into having the patient be a DNR. Discharge back to [facility] today, 01/02/18. Will change IV Rocephin to oral Keflex TID for an additional 3 days to complete treatment course. Patient to follow up with Dr. Hood who was notified by Dr. Barboza of aspiration concerns and treatment plans. 01/03/18 Discharge was canceled yesterday as [facility] did not feel comfortable taking her back unless she was on hospice. At this time, case management is working with patient's guardian to get a DO NOT RESUSCITATE in place and to discuss hospice. Case discussed with speech therapy. She reports when they worked with patient yesterday she was choking on everything and is at risk for aspiration. Rec NPO. Nurses state today the patient is choking on everything again as well. For now will place patient on nothing by mouth status. Guardian does not wish to pursue feeding tube at this time. Paperwork completed by Dr. Hood and Dr. Barboza to allow guardian to petition court for DO NOT RESUSCITATE order. Guardian met with representatives from [facility] and has signed on for hospice care; she prefers discharge to [facility] but is open to alternate facilities if necessary. At present she would like thickened liquids continued and necessary medications continued. Several medication modifications made including discontinuation of nonessential medications (MiraLAX, lisinopril , loratadine) or medications which can be substituted readily ([place]) and Roxanol initiated with Lorazepam Intensol prn if unable to take usual psychiatric medications. Will try to continue home psychiatric regimen. Patient has now completed 6 days of ceftriaxone (12/29-01/03). Discontinued. 01/04/18 Change diet to full [thickened] liquid - aspiration risk discussed with guardian. Abx course for UTI completed. Discharge plans in progress. 01/05/18 Continue comfort measures- plans to dismiss to NH with hospice. Court has been petitioned for DNR order, case discussed with guardian. Full liquids ongoing for comfort per guardian despite aspiration risk. DC planning. Continue home supportive meds. 01/06/18 Continue comfort measures; DO NOT RESUSCITATE order written after court order received. Pured diet with thickened liquids. Continue medications for chronic psychiatric disease in addition to comfort medications. group home placement underway. 01/07/18 Nursing reports breakdown on coccyx-Mepilex dressing being used for skin protection. Awaiting placement. 01/08/18 DC to [place] today with plan to likely bring Hospice on board. [place] w/ Dr. Hood in a week. Physical exam dictated into the 01/08/18 progress note Time spent with patient: discharge greater than 30 minutes Resuscitation Status: Do Not Resuscitate Discharge Plan - Discharge Disposition Discharge Date: 01/02/18 Disposition: 50 Discharged To Hospice-Home *Condition: Improved Reason For Visit (Visit label in EMR): sepsis UTI - Discharge Medications *Discharge Medications: Continue Fluticasone Nasal [place] [Flonase] 2 spray EA NOSTRIL DAILY #0 ml Albuterol/Ipratropium [Duoneb] 1 unit AEROSOL QID Gabapentin 300 mg PO HS Sertraline [Zoloft] 150 mg PO QAM Loratadine [Claritin] 10 mg PO DAILY Lisinopril [Prinivil] 10 mg PO DAILY CloNIDine [Catapres] 0.1 mg PO HS OLANZapine [Zyprexa Zydis] 20 mg PO HS ClonazePAM [Klonopin] 1 mg PO TID Senna + Docusate [Senna Plus Tablet] 1 tab PO DAILY Esomeprazole Magnesium [Nexium] 40 mg PO DAILY #0 cap Acetaminophen 650 mg PO TID #0 tab Hypromellose [Systane Gel] 1 drop OP TID Vitamin E (Dl,Tocopheryl Acet) [Vitamin E] 100 unit PO DAILY - Discharge Packet/Instructions *Diet: Pured diet with syrup thickened liquids; patient should be upright/ seated at 90 for all intake and should remain upright for at least 30 minutes after meals. At high risk for aspiration. *Activity: As tolerates with assistance *Pain Management/Treatment: Tylenol as needed *Wound Care: mepilex dressing to coccyx-change q3d or sooner as needed *Expected Signs/Symptoms: Coughing with meals, low-grade fevers intermittently due to aspiration; may require low flow oxygen at times due to aspiration *Notify Physician if: Significant choking, high fever, deteriorating mental status. *During Business Hours Contact: Dr. Hood. *After Business Hours Contact: Dr. oHod *Pending Lab/Results: No Pending Lab - Referrals/Follow Up *Referrals/Follow Up: Lavern Hood MD [Primary Care Provider] - 1 Week - Patient Handouts Patient Handouts: Urinary Tract Infection in Women (GEN) - Dismissal Complete Discharge Instructions are:: Complete Physician Narrative - Narrative Attestation Narrative: Date: 01/08/18 Time: 1915
--- NOTE | 2018-01-11 18:19 | Progress Note ---
- Date 01/11/18 Subjective: Patient is alert and appears very fatigue. She is one more responsive alone to some of the questions. Denying any pain at this time or significant shortness of breath. Not entirely responsive to 10 system review Objective Vital signs: Temperature 97.1 F 01/08/18 08:00 Pulse Rate 64 01/08/18 08:00 Respiratory Rate 20 01/08/18 11:09 Blood Pressure 98/53 01/08/18 08:00 Pulse Oximetry 94 01/08/18 11:09 Height/Weight/BMI: Height 5 ft 6 in Weight 59.7 kg Body Mass Index 21.2 - Constitutional Present: mild distress, well nourished, well developed, cooperative, somnolent - Routine HEENT Exam Eye: Present: EOMI ENT: Present: mucous membranes moist, dentition normal - Routine Respiratory Exam Present: rhonchi, diminished air movement. Absent: rales, wheezes - Routine Cardiovascular Exam Present: murmur, irregularly irregular - Routine Abdominal Exam Present: soft, normoactive bowel sounds, non distended. Absent: tenderness - Routine Extremities Exam Present: edema, normal capillary refill - Routine Skin Exam Present: dry, warm - Routine Neurological Exam Present: alert, CN II-XII intact - Routine Lymphatic Exam Lymphatic: Absent: adenopathy - Routine Psychiatric Exam Present: normal affect, unable to assess Results - Labs CBC & Chem 7: 01/03/18 04:43 01/03/18 04:43 Microbiology Results: Microbiology 12/29/17 18:34 Peripheral/Iv Start Blood Culture - Final No Growth After 5 Days 12/29/17 18:42 Peripheral/Iv Start Blood Culture - Final No Growth After 5 Days 12/29/17 19:09 Urine, Cath Straight Urine Culture - Final Escherichia coli Assessment and Plan (1) UTI (urinary tract infection) Status: Acute (2) Sepsis Status: Acute Assessment and Plan: Assessment: Severe sepsis secondary to UTI as indicated by fever, tachycardia, leukocytosis , lactic acidosis (2.1), hyperglycemia in non-diabetic -treated UTI, present on admission. Anemia, mild, present on admission. Hyperglycemia in non-diabetic, present on admission. Hypertension. 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 Bipolar disorder. GERD. Seasonal allergies. Constipation. Interstitial cystitis. History of ureteral stenosis. Chronic pain. Personality disorder Oropharyngeal dysphagia. COPD. Osteoarthritis. Recurrent aspiration Plan Continue comfort measures; DO NOT RESUSCITATE order written after court order received. Patient transferring to [facility] under the care hospice under comfort care orders. - Physician Narrative Narrative: Date: 01/11/18 Time: 1815 Hospital Course Summary Disclaimer: The visit summary below is not to be considered part of the above Progress Note. Hospital Course: Patient was admitted to inpatient status under the hospitalist service by the night tele-hospitalist on the evening of 12/29/17 for treatment of severe sepsis secondary to UTI. She was started on Rocephin 1 IV Q24 hours on admission. Blood cultures were obtained on admission and remained negative at time of discharge (x 3 days). Urine culture revealed pansensitive E.coli, sensitive to treatment with Rocephin. Serial lactates were monitored and trended down - 2.1-- >1.8-->0.7. Patient continues to have intermittent fevers throughout admission despite apparent clinical improvement. Initial leukocytosis present on admission, resolved on 12/30/17. On admission, she was noted to have hyperglycemia without a known history of diabetes. BGMs were monitored closely and improved with treatment of sepsis. Home medications were continued including home clonidine and lisinopril. CXR on admission was unremarkable without focal pneumonia. Initial diet on admission was reported to be pureed meats and nectar thickened liquids. Patient was seen and evaluated by speech therapy shortly after admission due to expressed concerns by nursing for aspiration. Speech therapy recommended continuation of pureed diet with syrup thick liquids with assisted feelings of small bites at a slow rate. On 12/31/17, staff from [facility] noted the patient appeared to be back at mental baseline. Repeat CXR on 12/31/17 revealed mild pulmonary vascular congestion most likely related to hydration therapy following admission. Weight trended up, though patient did not appear overtly fluid overloaded and respiratory status has remained stable. Nursing again expressed concern about possible recurrent aspiration with eating. It was recommended that the patient remain NPO to minimize risk of aspiration. Family and DPOA expressed that they do not want to have a feeding tube placed. Patient will continue with home medications and family request that she receive feedings in the safest way possible. Speech recommended all feedings be done upright and that the patient remain upright following feedings. Discussions with family regarding the patient's current code status occurred and family is looking into having the patient be a DNR. Discharge back to [facility] today, 01/02/18. Will change IV Rocephin to oral Keflex TID for an additional 3 days to complete treatment course. Patient to follow up with Dr. Hood who was notified by Dr. Barboza of aspiration concerns and treatment plans. 01/03/18 Discharge was canceled yesterday as [facility] did not feel comfortable taking her back unless she was on hospice. At this time, case management is working with patient's guardian to get a DO NOT RESUSCITATE in place and to discuss hospice. Case discussed with speech therapy. She reports when they worked with patient yesterday she was choking on everything and is at risk for aspiration. Rec NPO. Nurses state today the patient is choking on everything again as well. For now will place patient on nothing by mouth status. Guardian does not wish to pursue feeding tube at this time. Paperwork completed by Dr. Hood and Dr. Barboza to allow guardian to petition court for DO NOT RESUSCITATE order. Guardian met with representatives from [facility] and has signed on for hospice care; she prefers discharge to [facility] but is open to alternate facilities if necessary. At present she would like thickened liquids continued and necessary medications continued. Several medication modifications made including discontinuation of nonessential medications (MiraLAX, lisinopril , loratadine) or medications which can be substituted readily ([place]) and Roxanol initiated with Lorazepam Intensol prn if unable to take usual psychiatric medications. Will try to continue home psychiatric regimen. Patient has now completed 6 days of ceftriaxone (12/29-01/03). Discontinued. 01/04/18 Change diet to full [thickened] liquid - aspiration risk discussed with guardian. Abx course for UTI completed. Discharge plans in progress. 01/05/18 Continue comfort measures- plans to dismiss to [place] with hospice. Court has been petitioned for DNR order, case discussed with guardian. Full liquids ongoing for comfort per guardian despite aspiration risk. DC planning. Continue home supportive meds. 01/06/18 Continue comfort measures; DO NOT RESUSCITATE order written after court order received. Pured diet with thickened liquids. Continue medications for chronic psychiatric disease in addition to comfort medications. correction placement underway. 01/07/18 Nursing reports breakdown on coccyx-Mepilex dressing being used for skin protection. Awaiting placement. 01/08/18 DC to [place] today with plan to likely bring Hospice on board. [place] w/ Dr. Hood in a week. Physical exam dictated into the 01/08/18 progress note
== END 2018-01-08 12:00 | disposition hospice, home (50) | DRG 872 ==
LOC: ED 18:07 → EDHOLD 19:45 → SUATTDRO 19:45 → MED 20:15 → EDHOLD 20:19
PROVIDERS: ADMIT Internal Medicine; ATTEND Family Medicine